=== PATIENT | female | born 1970 | race Caucasian/White ===

== ENCOUNTER → 2019-12-06 13:34 | Outpatient (CLI) | payer BC, SELFPAY ==
--- NOTE | ~2019-12-06 | MM_ITS ---
EXAMINATION: MM screening [facility] BI w hira HISTORY: Screening mammogram TECHNIQUE: Craniocaudal and mediolateral oblique 3-D tomosynthesis images were obtained and synthetic 2-D images were generated. CAD analysis was submitted and interpreted. COMPARISON: 11/20/2018, 11/11/2017, 11/07/2016 bilateral digital screening mammogram examinations 11/20/2017 diagnostic left digital mammogram and limited left breast ultrasound BREAST PARENCHYMAL COMPOSITION: There are scattered areas of fibroglandular density. FINDINGS: Scattered bilateral benign calcifications. Stable fibroglandular asymmetry since 11/07/2016. There is no evidence of suspicious mass, calcification, or architectural distortion to suggest malig xenia in either breast. There has been no suspicious interval change. IMPRESSION: 1. No mammographic evidence of malignancy. 2. Recommend routine screening mammography in one year. BI-RADS Category 2: Benign finding(s). Reviewed, dictated and finalized at location A.
== END ==
PROVIDERS: Visit Provider Obstetrics & Gynecology Gynecology
DX: Z12.31 Encounter for screening mammogram for malignant neoplasm of breast (principal)
CPT/HCPCS: 77063; 77067

== ENCOUNTER 2020-08-28 08:00 | Outpatient (RCR) | payer BC, SELFPAY ==
--- NOTE | 2020-08-02 09:42 | PTOPEVAL ---
PHYSICAL THERAPY EVALUATION AND PLAN OF CARE 08-02-20 Thank you for referring Masha Wilde to [facility], for the diagnosis of L LE lymphedema.? Daniella is scheduled to be seen for therapy? 2 x/week for 4 weeks. Please review, sign, date and return this plan of care CHAR. I agree with and certify that the following plan of care is medically necessary. Referring Physician Date Attending Provider: BRAD Stern PT Outpatient Evaluation Document 08/02/20 08:30 CJ (Rec: 08/02/20 09:42 CJ [id number]) Past Medical History Source of Past Medical History Patient Neurological History Hx Neurological Disorders No Significant History Cardiovascular History Hx Hypercholesterolemia Yes: med Respiratory History Hx Respiratory Disorders No Significant History Gastrointestinal History Hx Cholecystectomy Yes Hx Hernia Yes Genitourinary History Hx Genitourinary Disorders No Significant History Musculoskeletal History Hx Other Musculoskeletal Disorders Yes: R and L ankle sprains multiple times-- non surgical Endocrine History Hx Diabetes Yes: meds HEENT History Hx Other HEENT Disorders Yes: wear glasses Integumentary History Hx Skin Disorders No Significant History Reproductive History Hx Section Yes: x1 Other History Hx Other Medical Conditions Yes: obesity; in past year, lost about 25# Evaluation Information Problem Diagnosis LE lymphedema Onset May 08, 2020 Prior Level of Function Activity Level (Last 3 Months) 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 Activity of Daily Living Ability Independent Indoor/Home Mobility Independent Community Mobility Independent Stairs Ability Independent Functional Cognition (Planning, Shopping Independent , Taking Medications) Cooking Yes Cleaning Yes Laundry Yes Shopping Yes Driving Yes Pain Assessment Timing of Pain Assessment Timing of Pain Assessment Assessment Pain Scale Pain Scale Used Numeric (1 - 10) Self Report Pain Assessment Left Leg(s) Reported Pain Level 1 Pain Frequency Chronic,Continuous Other Pain Description pain on top of foot and ankle; bloating of foot, heavy across leg Lowest Pain Intensity 1 Greatest Pain Intensity 5 Pain Score Pain Score 1: Self Report Interventions Used Interventions Used By Clinicians Education Lower Extremity Range of Motion General Lower Extremi
--- NOTE | 2020-08-28 08:53 | PTOPEVAL ---
PHYSICAL THERAPY DISCHARGE 08-28-20 Refer to the clinical summary below for her status with today's discharge, compared to the initial eval. Thank you for referring Masha Wilde to [facility].? Please review, sign, date and return this Discharge CHAR. I agree with and certify that the following plan of care is medically necessary. Referring Physician Date Attending Provider: Odilia Foster, ANP Document 08/28/20 08:33 CJ (Rec: 08/28/20 08:53 CJ [id number]) Assessment Status Assessment Status Discharge Subjective Information Daniella reports: is doing self Query Text:As Reported By Patient/ massage; has the info for the Family knee high compression; is awaiting to hear back about the home compression pump; does not have any questions and is ready for discharge. Pain Assessment Timing of Pain Assessment Timing of Pain Assessment Assessment Self Report Self Report Pain Level 0 Pain Score Pain Score 0: Self Report Lymphedema Evaluation Skin Inspection Location Left Lower Extremity Skin Observations Absence of Leg Hair, Hyperpigmentation,Hyperplasia Palpation Findings Warm Skin Temperature Tissue Texture Firm Lymphedema Stage I Skin Inspection Comment minimal redness over anterior lower leg; visible lateral and medial malleoli; no firmness of tissue over lower leg; no tenderness reported; upper leg/thigh with normal skin color and good tissue mobility; firmness over lower abdomen, with palpation; LE Circumferential Measurement Left LE Lymphedema Side Left Metatarsal Heads (cm) 21.5 Figure 8 of Ankle (cm) 51 8 cm From Bottom of Foot (cm) 25 12 cm From Bottom of Foot (cm) 23.5 16 cm From Bottom of Foot (cm) 26 20 cm From Bottom of Foot (cm) 30.5 24 cm From Bottom of Foot (cm) 35.5 28 cm From Bottom of Foot (cm) 39.5 32 cm From Bottom of Foot (cm) 42.8 36 cm From Bottom of Foot (cm) 42.5 40 cm From Bottom of Foot (cm) 38 44 cm From Bottom of Foot (cm) 43 48 cm From Bottom of Foot (cm) 48 52 cm From Bottom of Foot (cm) 51.5 56 cm From Bottom of Foot (cm) 54 60 cm From Bottom of Foot (cm) 59.5 64 cm From Bottom of Foot (cm) 60 68 cm From Bottom of Foot (cm) 62 Total Left Lower Extremity Left LE: 753.8 cm Circumferential Measurement
--- NOTE | 2021-01-15 13:20 | PCPTNOTE ---
late note for 08/16/20 Pt was seen for a total of 60 minutes. 4 units of manual therapy for bi lateral LE lymphedema. MLD was performed to patient in a sitting position on the mat; upper and lower anterior and posterior quadrants of the trunk. Node stimulation of; supraclavicular, axilla, inguinal and intestinal. Then LE proximal, to distal and distal to proximal clearing. One leg and a time. After mld and lotion to leg, applied leg piece to left lower leg applied rock tape to top of foot to assist in lymph flow.
== END 2020-08-29 08:32 | disposition home or self-care (01) ==
LOC: ANHPT 08:00
PROVIDERS: PCP Physician Assistant Medical; Visit Provider Physician Assistant Medical
DX: I89.0 Lymphedema, not elsewhere classified (principal)
CPT/HCPCS: 29581; 97016; 97140; 97161

== ENCOUNTER → 2020-09-07 12:42 | Outpatient (CLI) | payer BC, SELFPAY ==
--- NOTE | ~2020-09-07 | US_ITS ---
EXAMINATION: US pelvic complete DATE: 09/07/2020 13:43 INDICATION: Left lower quadrant pain. Menorrhagia. Comparison:No prior studies for comparison. TECHNIQUE: Multiple transabdominal and endovaginal sonographic images of the pelvis performed. FINDINGS: The uterus measures 13.6 x 7 x 8.5 cm. There are subtle hypoechoic masses of the uterus, co nsistent with fibroids, largest at the fundus measuring 5.3 x 5.4 x 4.8 cm. On the left there is a sm aller 1.4 cm fibroid. The endometrial complex measures 1 cm. The right ovary is not visualized. Left ovary is unremarkable measuring 2.3 x 2.5 x 2.4 cm. There is no free fluid in the pelvis. There are no abnormal masses seen on either side. IMPRESSION: 1. Enlarged fibroid uterus. Largest discrete fibroid measures 5.4 x 5.3 x 4.8 cm. Reviewed, dictated and finalized at location A. IMPRESSION: 1. Enlarged fibroid uterus. Largest discrete fibroid measures 5.4 x 5.3 x 4.8 c m.
== END ==
PROVIDERS: PCP Physician Assistant Medical; Visit Provider Obstetrics & Gynecology Gynecology
DX: R10.32 Left lower quadrant pain (principal); D25.9 Leiomyoma of uterus, unspecified
CPT/HCPCS: 76856

== ENCOUNTER 2020-10-04 13:00 | Outpatient (CLI) | payer BC, SELFPAY ==
[2020-10-04 14:15] LABS: Anion Gap 10 mmol/L (8-16); Blood Urea Nitrogen 11 mg/dL (7-17); Calcium 9.9 mg/dL (8.4-10.2); Carbon Dioxide 28 mmol/L (22-30); Chloride 103 mmol/L (98-107); Estimated Glomerular Filt Rate > 60; Glucose 233 mg/dL (65-105); Potassium 3.6 mmol/L (3.4-5.0); Sodium 141 mmol/L (137-145)
== END 2020-10-04 13:01 | disposition home or self-care (01) ==
LOC: ANHSURGERY 13:03
PROVIDERS: Anesthesiology; PCP Physician Assistant Medical; Visit Provider Obstetrics & Gynecology Gynecology
DX: Z01.818 Encounter for other preprocedural examination (principal); E11.9 Type 2 diabetes mellitus without complications
CPT/HCPCS: 36415; 80048

== ENCOUNTER 2020-10-06 01:25 | Day surgery (SDC) | payer BC, SELFPAY ==
[2020-10-03 16:13] VITALS: BMI 38.1
[2020-10-06 06:15] VITALS: BP 140/89; PULSE 83; RESP 20; TEMP 36.4; O2SAT 100
[2020-10-06] MEDS: ACETAMINOPHEN 500 MG TABLET 1000 MG PO (06:28)
[2020-10-06] MEDS: LACTATED RINGERS 1,000 ML 30 ML IV CONT (06:30)
[2020-10-06 06:39] LABS: Glucose Point of Care 189 mg/dl (65-105)
--- NOTE | 2020-10-06 06:42 | WPDANESEPPF ---
Anes - Initial Pre Proc Eval Procedure: Operation Date: 10/06/20 07:30 Proposed Procedures p Hysteroscopy, Dilation and Curettage, Myomectomy - Gissell Talavera MD Date/Time: 10/06/20 06:42 Surgeon: Gissell Talavera MD Pre Op Diagnosis: irregular bleeding Patient Data Age: 50 Gender: F Height: 1.65 m Weight: 104 kg Allergies Allergy/AdvReac Type Severity Reaction Status Date / Time No Known Allergies Allergy Unknown Verified 10/06/20 06:24 Home Medications Medication Instructions Recorded Confirmed Type atorvastatin 20 mg PO DAILY 10/03/20 10/06/20 History cholecalciferol (vitamin D3) 25 mcg PO DAILY 10/03/20 10/06/20 History [Vitamin D3] mecobalamin (vitamin B12) [B12 1,000 mcg PO DAILY 10/03/20 10/06/20 History Active] metformin 500 mg PO DAILY 10/03/20 10/06/20 History bzcdvdoumzhl-qbd-vnte-FA-vit K 1 tablet PO DAILY 10/03/20 10/06/20 History [Adults Multivitamin] semaglutide [Rybelsus] 30 mg PO DAILY 10/03/20 10/06/20 History Laboratory Tests 10/06/20 06:36 POC Capillary Glucose 189 mg/dl H mg/dl (65-105) Patient hx anesthesia problems: none Family hx anesthesia problems: none PMFSH Past Medical History Medical History (Updated 10/06/20 @ 06:45 by Jeff Guzman MD) Diabetes Obesity Surgical History Surgical History (Updated 10/06/20 @ 06:46 by Jeff Guzman MD) H/O hernia repair History of section History of cholecystectomy Social History Social History Smoking packs per day: 1 Smoking cigarettes per day: 20.0 Years smoked: 10 Smoking pack-years: 10.00 Smoking status: Former smoker Tobacco type: cigarettes Smoking end date: 03/24/97 Alcohol intake: former Drinks per week: 1 Substance use: never Substance use type: does not use Living arrangements: with family Spiritual care concerns: No Anes - Eval Final PreProcedure Day of Procedure 10/06/20 06:42 Patient weight: obese Heart: regular rate and rhythm Lungs: clear to auscultation Airway: Mallampati scale class III Neurological: alert and oriented Last oral intake: >/= 8 hours ASA classification: III Emergent: no Anesthetic plan: proceed Anesthesia type and monitoring: general GIVS and standard monitoring Informed Consent: The patient's anesthetic plan and its attendant risks and benefits were discussed with the patient/family/POA. Questions were solicited and answers provided to the satisfaction of the patient/family/POA.
--- NOTE | 2020-10-06 07:16 | WPDHPUPDATE1 ---
History and Physical Update Update Date/Time: 10/06/20 07:16 History and Physical has been reviewed, including an updated exam of the patient. There are NO changes in the patient's condition. Risks, benefits, and alternatives have been discussed and questions answered. Patient agrees to proceed with procedure.
--- NOTE | 2020-10-06 07:16 | PM.HPGS ---
History of Present Illness History of Present Illness Consent: Risks, benefits, and alternatives have been discussed and questions answered. Patient agrees to proceed with procedure. Chief complaint: irregular bleeding Narrative: Masha Wilde is a 50 year old female With a new onset of irregular cycles occurring every 2 weeks. Recommend workup with hysteroscopy D&C. Ultrasound shows multiple fibroids. Risks of procedure including infection, bleeding, and perforation were reviewed. Possible pathology is also discussed. Patient's questions are answered and she agrees to proceed. Review of Systems Review of Systems: Narrative: not repeated day of surgery; patient states no changes in status PMFSH Past Medical History Medical History (Updated 10/06/20 @ 07:20 by Gissell Talavera MD) Diabetes HTN (hypertension) Hypercholesteremia Obesity Surgical History Surgical History (Updated 10/06/20 @ 07:18 by Gissell Talavera MD) H/O hernia repair History of section History of cholecystectomy S/P LEEP Social History Social History Smoking packs per day: 1 Smoking cigarettes per day: 20.0 Years smoked: 10 Smoking pack-years: 10.00 Smoking status: Former smoker Tobacco type: cigarettes Smoking end date: 03/24/97 Alcohol intake: former Drinks per week: 1 Substance use: never Substance use type: does not use Living arrangements: with family Spiritual care concerns: No Meds Home Medications and Allergies Home Medications Medication Instructions Recorded Confirmed Type atorvastatin 20 mg PO DAILY 10/03/20 10/06/20 History cholecalciferol (vitamin D3) 25 mcg PO DAILY 10/03/20 10/06/20 History [Vitamin D3] mecobalamin (vitamin B12) [B12 1,000 mcg PO DAILY 10/03/20 10/06/20 History Active] metformin 500 mg PO DAILY 10/03/20 10/06/20 History nfidwyfrlgpv-mjr-grcy-FA-vit K 1 tablet PO DAILY 10/03/20 10/06/20 History [Adults Multivitamin] semaglutide [Rybelsus] 30 mg PO DAILY 10/03/20 10/06/20 History Allergies Allergy/AdvReac Type Severity Reaction Status Date / Time No Known Allergies Allergy Unknown Verified 10/06/20 06:24 Vital Signs Vital Signs - 24 hr 10/06/20 06:15 Temperature 97.5 F L Pulse Rate 83 Respiratory Rate 20 Blood Pressure 140/89 Pulse Oximetry 100 Exam Const: General: comfortable and no acute distress : External Female Exam: normal external appearance Speculum Exam - Vagina: normal appearance of the vagina Speculum Exam - Cervix: normal appearance of the cervix Bimanual exam- vagina & uterus: enlarged (12 wk size) Bimanual Exam- Adnexa, other: normal adnexae Assessment and Plan Assessment and plan (1) Irregular menses: Code(s): N92.6 - Irregular menstruation, unspecified Status: Acute Assessment and Plan: Plan to proceed with hysteroscopy with D&C (2) Fibroids: Code(s): D21.9 - Benign neoplasm of connective and other soft tissue, unspecified Status: Acute Assessment and Plan: possible myosure ressection
--- NOTE | 2020-10-06 07:57 | P.OP_ITS ---
Procedure Note - Detailed Date of Procedure 10/06/20 Pre-op Diagnosis irregular bleeding Post-op Diagnosis same Procedure Performed Hysteroscopy with MyoSure resection Surgeon Gissell Talavera MD Anesthesia MAC and local Findings cervix is stenotic; endocervix has multiple polyp type growth; uterus sounds to8.5cm and has thickened calcified areas at the junction of the right sidewall near the cervix as well as a thickened area at the left sidewall; the remainder of the endometrium appears atrophic Description of Procedure the patient was taken to the operating placed under anesthesia in the dorsal lithotomy position. She is prepped and draped in the usual sterile fashion. The [facility] speculum was too wide to the Ortega speculum was placed, the cervix was grasped on the anterior lip with a tenaculum, and injected with 1% lidocaine. The uterus was attempted to be sounded but cervical stenosis is noted. Os Finders are used to open the internal os. The cervix was then serially dilated with Hegars and the uterus sounded to8.5cm. The diagnostic hysteroscope was placed with the above-stated findings. The MyoSure device is opened and placed under direct visualization the cervical polyp growths as well as the thickened areas in the endometrium are removed under direct visualization. All instruments were then removed and the patient awakened from anesthesia. Sponge, needle, and instruments are counted as correct per OR staff. Estimated Blood Loss 5 Drains No Packing No Pathology yes ( Endometrial and endocervical shavings) Complications No immediate complications Condition stable Disposition PACU
[2020-10-06 08:05] VITALS: BP 115/63; PULSE 69; RESP 12; O2SAT 95
[2020-10-06 08:11] LABS: Glucose Point of Care 205 mg/dl (65-105)
[2020-10-06 08:35] VITALS: BP 123/70; PULSE 58; RESP 16
[2020-10-06 08:59] VITALS: BP 119/70; PULSE 56; RESP 16
== END 2020-10-06 09:05 | disposition home or self-care (01) ==
PROVIDERS: PCP Physician Assistant Medical; Visit Provider Obstetrics & Gynecology Gynecology
PROC: 0U5B8ZZ Destruction of Endometrium, Via Natural or Artificial Opening Endoscopic (ICD-10-PCS; CPT 58563; principal; 2020-10-06 07:30)
DX: N92.6 Irregular menstruation, unspecified (principal); N84.0 Polyp of corpus uteri; E11.9 Type 2 diabetes mellitus without complications; E78.00 Pure hypercholesterolemia, unspecified; I10 Essential (primary) hypertension; Z79.84 Long term (current) use of oral hypoglycemic drugs; E66.9 Obesity, unspecified; Z68.37 Body mass index [BMI] 37.0-37.9, adult; Z87.891 Personal history of nicotine dependence
CPT/HCPCS: 58558; 82948; 88305; A9270; J2250; J2405; J2704; J3010; J7120

== ENCOUNTER → 2020-12-26 16:08 | Outpatient (CLI) | payer BC, SELFPAY ==
--- NOTE | ~2020-12-26 | MM_ITS ---
EXAMINATION: MM screening [facility] BI w hira HISTORY: Screening mammogram, family history of breast cancer in her sister. TECHNIQUE: Craniocaudal and mediolateral oblique 3-D tomosynthesis images were obtained and synthetic 2-D images were generated. CAD analysis was submitted and interpreted. COMPARISON: 12/06/2019, 11/20/2018, 11/20/2017, 11/11/2017 BREAST PARENCHYMAL COMPOSITION: There are scattered areas of fibroglandular density. FINDINGS: Again noted is stable focal asymmetry in the upper outer quadrant of the left breast. There is no evidence of suspicious mass, calcification, or architectural distortion to suggest malignancy in either breast. There has been no suspicious interval change. IMPRESSION: 1. No mammographic evidence of malignancy. 2. Recommend routine screening mammography in one year. BI-RADS Category 2: Benign finding(s). Reviewed, dictated and finalized at location A.
== END ==
PROVIDERS: Visit Provider Obstetrics & Gynecology Gynecology
DX: Z12.31 Encounter for screening mammogram for malignant neoplasm of breast (principal)
CPT/HCPCS: 77063; 77067

== ENCOUNTER 2021-09-26 10:21 | Outpatient (CLI) | payer BC, SELFPAY ==
--- NOTE | 2021-09-26 10:29 | ECG_ITS ---
Measurements Intervals [place] Rate: 84 P: 42 VA: 148 QRS: -4 QRSD: 89 T: 14 QT: 349 QTc: 415 Interpretive Statements SINUS RHYTHM DELAYED PRECORDIAL R/S TRANSITION BASELINE ARTIFACT- I, II, III, AVR, AVL, AVF BORDERLINE ECG Electronically Signed On 09-26-2021 11:02:20 CDT by Andrés Jim D.O.
[2021-09-26 11:07] LABS: Anion Gap 7 mmol/L (8-16); Blood Urea Nitrogen 13 mg/dL (7-17); Calcium 9.2 mg/dL (8.4-10.2); Carbon Dioxide 26 mmol/L (22-30); Chloride 105 mmol/L (98-107); Estimated Glomerular Filt Rate > 60; Glucose 237 mg/dL (65-110); Potassium 4.1 mmol/L (3.4-5.0); Sodium 138 mmol/L (137-145)
== END 2021-09-26 10:22 | disposition home or self-care (01) ==
LOC: ANHSURGERY 10:27
PROVIDERS: Anesthesiology; PCP Internal Medicine; Visit Provider Obstetrics & Gynecology Gynecology
DX: Z01.818 Encounter for other preprocedural examination (principal); E11.9 Type 2 diabetes mellitus without complications
CPT/HCPCS: 36415; 80048; 93005

== ENCOUNTER 2021-10-01 00:02 | Day surgery (SDC) | payer BC, SELFPAY ==
[2021-09-25 10:56] VITALS: BMI 37.9
--- NOTE | 2021-09-25 11:02 | PC.NURSE ---
Report to the Outpatient Waiting Room, entrance under the green pavilion located off [facility], at time __06:00AM on date __10-01-21__. OR Time: _07:30AM_. - You and your visitor will be asked a series of questions to screen for COVID 19 for your protection. - Only one visitor is allowed at this time. - The patient visitor is requested to leave or wait in car when not with patient. - A mask is required within the hospital. Patients may have clear liquids (water, carbonated beverages, clear teas, apple juice) until 3 hours prior to surgery with a maximum of 20 ounces. NOTHING TO DRINK AFTER 04:30AM - No food from midnight until time of surgery - Infants may have breast milk until 4 hours before surgery, formula 6 hours prior to surgery. - Children will be allowed to drink immediately following surgery. If applicable, please bring a bottle or sippy cup to assist with drinking. Juice, water, soda, and popsicles are readily available. For infants on formula, please bring formula the day of surgery. Pacifiers are allowed. Take the following medications with a SIP of water the morning of surgery: ZOLOFT Medications to discontinue per physician VITAMINS Date to take last dose Please no make-up, nail danish, hairspray, perfume, deodorant, or body powder the day of surgery. No jewelry (including any body piercings) or valuables the day of surgery, leave them at home. Please take a shower or bath the night before, or the morning of, surgery with an antibacterial soap. Wear comfortable, loose fitting clothing. - Jewelry must be removed prior to entering the operating room. Rings and piercings that are not removed may be cut off. - The hospital will not accept responsibility for valuables. - Please leave all valuables, including medications, at home the day of surgery. If you are going home after surgery, a licensed boom truck driver must drive you home. - NO public transportation without another adult. - We recommend that an adult stay with you for 24 hours following discharge. - We also recommend that you do not drive, make important decision, drink alcoholic beverages, or take any drugs that were not prescribed by your health care provider for at least 24 hours after your discharge time. Follow any additional instructions given to you from your surgeon. If you or anyone in your household have experienced Covid symptoms in the past week, please notify your surgeon or the nurse liaison at the phone number below for possible testing. Telephone instructions given to __PATIENT__and asked if any additional questions and then verbalized understanding. Patient advised to call surgeon office or pre surgery nurse liaison [phone] if any additional questions.
--- NOTE | 2021-10-01 06:32 | P.PNAN_ITS ---
Anes - Initial Pre Proc Eval Procedure: Operation Date: 10/01/21 07:30 Proposed Procedures p Hysteroscopy with Starr Endometrial Ablation - Gissell Talavera MD Date/Time: 10/01/21 06:32 Surgeon: Gissell Talavera MD Pre Op Diagnosis: Menorrhagia Patient Data Age: 51 Gender: F Height: 1.66 m Weight: 105 kg Allergies Allergy/AdvReac Type Severity Reaction Status Date / Time No Known Allergies Allergy Unknown Verified 09/25/21 10:50 Home Medications Medication Instructions Recorded Confirmed Type atorvastatin 20 mg tablet 20 mg PO DAILY 10/03/20 09/25/21 History cholecalciferol (vitamin D3) 25 25 mcg PO DAILY 10/03/20 09/25/21 History mcg (1,000 unit) tablet (Vitamin D3) mecobalamin (vitamin B12) 1,000 1,000 mcg PO DAILY 10/03/20 09/25/21 History mcg chewable tablet (B12 Active) metformin 500 mg tablet,extended 500 mg PO DAILY 10/03/20 09/25/21 History release 24 hr multivit with minerals-iron 18 1 tablet PO DAILY 10/03/20 09/25/21 History mg-folic ac 400 mcg-vit K 25 mcg tablet (Adults Multivitamin) semaglutide 3 mg tablet (Rybelsus) 30 mg PO DAILY 10/03/20 09/25/21 History estradiol 1 mg-progesterone 100 mg 1 cap PO DAILY 09/25/21 09/25/21 History capsule sertraline 25 mg tablet (Zoloft) 25 mg PO DAILY 09/25/21 09/25/21 History Patient hx anesthesia problems: none Family hx anesthesia problems: none Results Review: All pre-operative results and documents have been reviewed as part of the pre- operative evaluation. [facility] Past Medical History Medical History Diabetes HTN (hypertension) Hypercholesteremia Obesity Surgical History Surgical History H/O hernia repair History of section History of cholecystectomy S/P LEEP Social History Social History Smoking packs per day: 1 Smoking cigarettes per day: 20.0 Years smoked: 11 Smoking pack-years: 11.00 Smoking status: Former smoker Tobacco type: cigarettes Smoking end date: 03/24/97 Alcohol intake: former Drinks per week: 4 Substance use: never Substance use type: does not use Living arrangements: with family Spiritual care concerns: No Anes - Eval Final PreProcedure Day of Procedure 10/01/21 06:32 Patient weight: obese Heart: regular rate and rhythm Lungs: clear to auscultation Airway: Mallampati scale class II Neurological: alert and oriented Last oral intake: >/= 8 hours ASA classification: III Emergent: no Anesthetic plan: proceed Anesthesia type and monitoring: general GIVS and standard monitoring Results Review: All pre-operative results and documents have been reviewed as part of the pre- operative evaluation. Informed Consent: The patient's anesthetic plan and its attendant risks and benefits were discussed with the patient/family/POA. Questions were solicited and answers provided to the satisfaction of the patient/family/POA.
[2021-10-01] MEDS: LACTATED RINGERS 1,000 ML 30 ML IV CONT (06:35)
[2021-10-01] MEDS: ACETAMINOPHEN 500 MG TABLET 1000 MG PO (06:36)
[2021-10-01 06:40] LABS: Glucose Point of Care 204 mg/dl (65-105)
[2021-10-01 06:45] VITALS: BP 116/74; PULSE 80; RESP 16; TEMP 36.1; O2SAT 97
--- NOTE | 2021-10-01 07:14 | WPDHPUPDATE1 ---
History and Physical Update Update Date/Time: 10/01/21 07:14 History and Physical has been reviewed, including an updated exam of the patient. There are NO changes in the patient's condition. Risks, benefits, and alternatives have been discussed and questions answered. Patient agrees to proceed with procedure.
--- NOTE | 2021-10-01 07:14 | PM.HPGS ---
History of Present Illness History of Present Illness Consent: Risks, benefits, and alternatives have been discussed and questions answered. Patient agrees to proceed with procedure. Chief complaint: Menorrhagia Narrative: Masha Wilde is a 51 year old female with heavy cycles. Patient underwent D&C hysteroscopy September of 2020. She has tried medication at varying doses without success. She has elected to proceed with Starr endometrial ablation. Risks of infection, bleeding, perforation, and failure of device were reviewed. Success was also reviewed with the patient. Patient voices understanding and agrees to proceed. Review of Systems Constitutional: Constitutional: Reports fatigue and Reports headache(s) Psychiatric: Psychiatric: Reports anxiety PMFSH Past Medical History Medical History (Updated 10/01/21 @ 07:18 by Gissell Talavera MD) Diabetes HTN (hypertension) Hypercholesteremia Obesity Surgical History Surgical History (Updated 10/01/21 @ 07:17 by Gissell Talavera MD) H/O hernia repair Umbilical 2010 History of section History of cholecystectomy History of hysteroscopy S/P LEEP Social History Social History Smoking packs per day: 1 Smoking cigarettes per day: 20.0 Years smoked: 11 Smoking pack-years: 11.00 Smoking status: Former smoker Tobacco type: cigarettes Smoking end date: 03/24/97 Alcohol intake: former Drinks per week: 4 Substance use: never Substance use type: does not use Living arrangements: with family Spiritual care concerns: No Meds Home Medications and Allergies Home Medications Medication Instructions Recorded Confirmed Type atorvastatin 20 mg tablet 20 mg PO DAILY 10/03/20 10/01/21 History cholecalciferol (vitamin D3) 25 25 mcg PO DAILY 10/03/20 10/01/21 History mcg (1,000 unit) tablet (Vitamin D3) mecobalamin (vitamin B12) 1,000 1,000 mcg PO DAILY 10/03/20 10/01/21 History mcg chewable tablet (B12 Active) metformin 500 mg tablet,extended 500 mg PO DAILY 10/03/20 10/01/21 History release 24 hr multivit with minerals-iron 18 1 tablet PO DAILY 10/03/20 10/01/21 History mg-folic ac 400 mcg-vit K 25 mcg tablet (Adults Multivitamin) semaglutide 3 mg tablet (Rybelsus) 30 mg PO DAILY 10/03/20 10/01/21 History estradiol 1 mg-progesterone 100 mg 1 cap PO DAILY 09/25/21 10/01/21 History capsule sertraline 25 mg tablet (Zoloft) 25 mg PO DAILY 09/25/21 10/01/21 History Allergies Allergy/AdvReac Type Severity Reaction Status Date / Time No Known Allergies Allergy Unknown Verified 10/01/21 06:44 Vital Signs Vital Signs - 24 hr 10/01/21 06:45 Temperature 97.0 F L Pulse Rate 80 Respiratory Rate 16 Blood Pressure 116/74 Pulse Oximetry 97 Oxygen Delivery Room Air Exam Const: General: healthy appearing and alert Orientation/consciousness: patient oriented x3 GI: GI Palp: Yes Soft to palpation, No Tenderness to palpation present (GI) and No Palpable mass present : External Female Exam: normal external appearance Speculum Exam - Vagina: normal appearance of the vagina and normal vaginal discharge Speculum Exam - Cervix: normal appearance of the cervix Bimanual exam- vagina & uterus: uterine size normal and consistency normal Bimanual Exam- Adnexa, other: normal adnexae and No adnexal tenderness Neuro: General: patient oriented x3 Assessment and Plan Assessment and plan (1) Menorrhagia: Code(s): N92.0 - Excessive and frequent menstruation with regular cycle Status: Acute Assessment and Plan: Plan to proceed with endometrial ablation with Starr device
[2021-10-01] MEDS: KETOROLAC 30 MG/ML VIAL (*BKC) IV PUSH (07:41)
--- NOTE | 2021-10-01 07:46 | W.PM.PROC2 ---
Procedure Note - Detailed Date of Procedure 10/01/21 Pre-op Diagnosis Menorrhagia Post-op Diagnosis Same Procedure Performed Starr endometrial ablation with hysteroscopy Surgeon Gissell Talavera MD Anesthesia MAC and Local Findings Uterus sounds to 10cm and appears grossly normal Description of Procedure The patient is taken to the operating room and placed under anesthesia in the dorsal lithotomy position. She was prepped and draped in the usual sterile fashion. [place] speculum was placed in the vagina, cervix was grasped on the anterior lip with a tenaculum, and cervix is injected in each quadrant with lidocaine. The uterus is sounded to 10cm. The cervix is serially dilated to an 8 Hegar. The diagnostic hysteroscope was placed with no abnormalities noted. The hysteroscope was removed and the Starr device opened and placed. Cavity assessment passed on the 1st attempt. The device is set at 6.5cm. Treatment cycle lasted the entire 2minutes. The device is removed and the hysteroscope replaced. Good ablation effect is noted. All instruments are removed and the patient awakened from anesthesia. Sponge, needle, and instrument counts are correct per the OR staff. Estimated Blood Loss 5 Drains No Packing No Pathology None sent Complications No immediate complications Condition Stable Disposition PACU
[2021-10-01 07:55] VITALS: BP 111/61; PULSE 67; RESP 12; O2SAT 93
[2021-10-01 07:59] LABS: Glucose Point of Care 196 mg/dl (65-105)
[2021-10-01 08:25] VITALS: BP 125/72; PULSE 70; RESP 12; O2SAT 95
[2021-10-01 08:55] VITALS: BP 128/72; PULSE 68; RESP 16
== END 2021-10-01 09:15 | disposition home or self-care (01) ==
PROVIDERS: PCP Internal Medicine; Visit Provider Obstetrics & Gynecology Gynecology
PROC: 0U5B8ZZ Destruction of Endometrium, Via Natural or Artificial Opening Endoscopic (ICD-10-PCS; CPT 58563; principal; 2021-10-01 07:30)
DX: N92.0 Excessive and frequent menstruation with regular cycle (principal); I10 Essential (primary) hypertension; E78.00 Pure hypercholesterolemia, unspecified; E11.9 Type 2 diabetes mellitus without complications; E66.9 Obesity, unspecified; Z68.35 Body mass index [BMI] 35.0-35.9, adult; Z87.891 Personal history of nicotine dependence; Z79.84 Long term (current) use of oral hypoglycemic drugs
CPT/HCPCS: 58563; 82948; A9270; J1100; J1885; J2250; J2405; J2704; J3010; J7030; J7120

== ENCOUNTER → 2022-04-15 15:00 | Outpatient (CLI) | payer BC, SELFPAY ==
--- NOTE | ~2022-04-15 | MM_ITS ---
EXAMINATION: MM screening [facility] BI w hira HISTORY: Screening mammogram TECHNIQUE: Craniocaudal and mediolateral oblique 3-D tomosynthesis images were obtained and synthetic 2-D images were generated. CAD analysis was submitted and interpreted. COMPARISON: 12/26/2020, 12/06/2019, 11/20/2018 bilateral screening mammogram examinations BREAST PARENCHYMAL COMPOSITION: The breasts are heterogeneously dense, which may obscure small masses . FINDINGS: Left breast: There is suggestion of multiple left breast masses. Diagnostic left mammogram and left breast ultrasound examination are recommended. Right breast: There is no evidence of suspicious mass, calcification, or architectural distortion to suggest malignancy in the right breast. There has been no suspicious interval change on the right. IMPRESSION: 1. Left breast masses 2. Diagnostic left mammogram and left breast ultrasound examination are recommended BI-RADS Category 0: Incomplete: Needs additional imaging evaluation. Reviewed, dictated and finalized at location A. FILLER IMPRESSION: 1. Left breast masses 2. Diagnostic left mammogram and left breast ultrasound examination are recomme nded BI-RADS Category 0: Incomplete: Needs additional imaging evaluation.
== END ==
PROVIDERS: PCP Obstetrics & Gynecology Gynecology; Visit Provider Obstetrics & Gynecology Gynecology
DX: Z12.31 Encounter for screening mammogram for malignant neoplasm of breast (principal); R92.8 Other abnormal and inconclusive findings on diagnostic imaging of breast
CPT/HCPCS: 77063; 77067

== ENCOUNTER 2022-05-02 07:54 | Outpatient (CLI) | payer BC, SELFPAY ==
--- NOTE | ~2022-05-02 | MMUS_ITS ---
EXAMINATION: MM diagnostic [facility] LT w hira, US breast LT limited HISTORY: Left breast masses suggested on 04/15/2022 screening mammogram examination TECHNIQUE: Additional 3-D tomosynthesis images of the left breast were performed and synthetic 2-D im ages were generated. CAD analysis was submitted and interpreted. High resolution upper outer and lowe r-outer quadrant left breast ultrasound was performed. COMPARISON: 04/15/2022 bilateral screening mammogram FINDINGS: MAMMOGRAPHIC FINDINGS: Circumscribed approximately 1.3 cm opacity is noted in the upper outer left breast; the mammographic features suggest benign process No suspicious reproducible mass or architectural distortion is evident on these supplemental views. T here are multiple benign calcifications. No skin thickening or retraction. ULTRASOUND: At 1:00 10 cm from the nipple there were a couple of sonolucent circumscribed lesions, measuring 6.6 x 6.4 x 7.1 mm and 12 x 9.6 x 13.5 mm. There is through transmission posterior enhancement. No suspicious mass or shadowing is detected. IMPRESSION: 1. Benign findings 2. Routine annual mammographic screening is recommended BI-RADS Category 2: Benign finding(s). Reviewed, dictated and finalized at location A. UP HELPER IMPRESSION: 1. Benign findings 2. Routine annual mammographic screening is recommended BI-RADS Category 2: Benign finding(s).
== END 2022-05-02 07:55 ==
PROVIDERS: PCP Physician Assistant Medical; Visit Provider Obstetrics & Gynecology Gynecology
DX: R92.8 Other abnormal and inconclusive findings on diagnostic imaging of breast (principal)
CPT/HCPCS: 76642; 77061; 77065; G0279

== ENCOUNTER 2022-09-23 08:16 | Outpatient (CLI) | payer BC, SELFPAY ==
--- NOTE | 2022-09-23 08:34 | ECG_ITS ---
Measurements Intervals [place] Rate: 94 P: 46 MS: 136 QRS: 3 QRSD: 88 T: 13 QT: 354 QTc: 443 Interpretive Statements SINUS RHYTHM POOR R WAVE PROGRESSION, ANTERIOR LEADS BASELINE ARTIFACT- III, AVF, V3 BORDERLINE ECG COMPARED TO ECG 09/26/2021 10:46:03 NO SIGNIFICANT CHANGES Electronically Signed On 09-23-2022 10:01:04 CDT by Andrés Jim D.O.
[2022-09-23 09:24] LABS: Hemoglobin 12.5 g/dL (12.0-15.0)
[2022-09-23 09:29] LABS: Anion Gap 13 mmol/L (8-16); Blood Urea Nitrogen 13 mg/dL (7-17); Carbon Dioxide 21 mmol/L (22-30); Chloride 103 mmol/L (98-107); Estimated Glomerular Filt Rate > 60; Glucose 280 mg/dL (65-110); Potassium 3.9 mmol/L (3.4-5.0); Sodium 137 mmol/L (137-145)
== END 2022-09-23 08:17 | disposition home or self-care (01) ==
PROVIDERS: Anesthesiology; PCP Physician Assistant Medical; Visit Provider Obstetrics & Gynecology Gynecology
DX: N92.0 Excessive and frequent menstruation with regular cycle (principal); E11.9 Type 2 diabetes mellitus without complications; Z01.818 Encounter for other preprocedural examination; R94.31 Abnormal electrocardiogram [ECG] [EKG]
CPT/HCPCS: 36415; 80048; 85014; 85018; 86850; 86900; 86901; 93005

== ENCOUNTER 2022-09-30 11:33 | Inpatient (IN) | payer BC, SELFPAY ==
[2022-09-19 14:40] VITALS: BMI 40.1
--- NOTE | 2022-09-19 14:46 | PC.NURSE ---
Report to the Outpatient Waiting Room, entrance under the green pavilion located off [facility], at time 7:30 on date 09/30/22. Planned Procedure Time: 9:30. Time changes happen often and if your time is changed the preop area will call you the afternoon before. - You and your visitor will be asked to self-screen and do not enter if you have any COVID symptoms. - A mask is optional within the hospital at this time. Patients may have clear liquids (water, carbonated beverages, clear teas, apple juice) until 3 hours prior to surgery (6:30) with a maximum of 20 ounces. - No food from midnight until time of surgery Take the following medications with a SIP of water the morning of surgery: SERTRALINE DO NOT STOP ANY OF YOUR OTHER PRESCRIPTION MEDICATIONS PRIOR TO SURGERY ?EXCEPT THE FOLLOWING Medications to discontinue per physician: VITAMINS/SUPPLEMENTS Date to take last dose: 09/26/22 Please no make-up, nail maltese, hairspray, perfume, deodorant, or body powder the day of surgery. No jewelry (including any body piercings) or valuables the day of surgery, leave them at home. Please take a shower or bath the night before, or the morning of, surgery with an antibacterial soap. Wear comfortable, loose fitting clothing. - Jewelry must be removed prior to entering the operating room. Rings and piercings that are not removed may be cut off. - The hospital will not accept responsibility for valuables. - Please leave all valuables, including medications, at home the day of surgery. If you are going home after surgery, a licensed delivery truck driver heavy must drive you home. - NO public transportation without another adult if you receive anesthesia. - We recommend that an adult stay with you for 24 hours following discharge. - We also recommend that you do not drive, make important decision, drink alcoholic beverages, or take any drugs that were not prescribed by your health care provider for at least 24 hours after your discharge time. Follow any additional instructions given to you from your surgeon. If you or anyone in your household have experienced Covid symptoms in the past week, please notify your surgeon or the nurse liaison at the phone number below for possible testing. Telephone instructions given to PT - MILLA ARREOLA and asked if any additional questions and then verbalized understanding. Patient advised to call surgeon office or pre surgery nurse liaison [phone] if any additional questions.
--- NOTE | 2022-09-27 10:52 | PCCCNOTE ---
Call placed to [facility] ([phone]) and spoke with Rose. She states case is approved for 2 days 09/30- 10/02. If more days are required faxed notes to [phone].
[2022-09-30] VITALS (18 sets, daily range): BP systolic 137–164; BP diastolic 62–94; PULSE 83–109; RESP 12–18; TEMP 36.1–36.9; O2SAT 92–100
[2022-09-30] MEDS: ACETAMINOPHEN 500 MG TABLET 1000 MG PO (06:30)
[2022-09-30 06:35] LABS: Glucose Point of Care 202 mg/dl (65-105)
[2022-09-30] MEDS: LACTATED RINGERS 1,000 ML 30 ML IV CONT ×2 (06:35→09:42)
[2022-09-30] MEDS: KETOROLAC 15 MG/ML VIAL (*BKC) IV PUSH (06:41)
--- NOTE | 2022-09-30 06:49 | WPDANESEPPF ---
Anes - Initial Pre Proc Eval Procedure: Operation Date: 09/30/22 07:30 Proposed Procedures p Total Abdominal Hysterectomy with Bilateral Salpingectomy - Gissell Talavera MD Date/Time: 09/30/22 06:49 Surgeon: Gissell Talavera MD Pre Op Diagnosis: menorrhagia Patient Data Age: 52 Gender: F Height: 1.65 m Weight: 109.35 kg Allergies Allergy/AdvReac Type Severity Reaction Status Date / Time lisinopril Allergy Severe angioedema Verified 09/30/22 06:47 Home Medications Medication Instructions Recorded Confirmed Type cholecalciferol (vitamin D3) 25 25 mcg PO DAILY 10/03/20 09/20/22 History mcg (1,000 unit) tablet (Vitamin D3) mecobalamin (vitamin B12) 1,000 1,000 mcg PO DAILY 10/03/20 09/20/22 History mcg chewable tablet (B12 Active) multivit with minerals-iron 18 1 tablet PO DAILY 10/03/20 09/20/22 History mg-folic ac 400 mcg-vit K 25 mcg tablet (Adults Multivitamin) Lactobacillus rhamnosus GG 10 1 cap PO DAILY 11/09/21 09/20/22 History billion cell capsule (Culturelle) metformin 500 mg tablet,extended 1,000 mg PO BID 3 months #360 tabs 04/04/22 09/20/22 Rx release 24 hr atorvastatin 20 mg tablet See Rx Instructions .Route 05/06/22 09/20/22 Rx .COMPLEX #90 tabs glimepiride 1 mg tablet 1 mg PO BID #180 tabs 08/15/22 09/20/22 Rx sertraline 25 mg tablet See Rx Instructions .Route 08/26/22 09/20/22 Rx .COMPLEX #90 tabs Laboratory Tests 09/30/22 06:33 POC Capillary Glucose 202 H mg/dl (65-105) Patient hx anesthesia problems: none Family hx anesthesia problems: none Results Review: All pre-operative results and documents have been reviewed as part of the pre-operative evaluation. [facility] Past Medical History Medical History Cholecystectomy planned Diabetes HTN (hypertension) Hypercholesteremia Obesity Vitamin B 12 deficiency Vitamin D deficiency Surgical History Surgical History H/O hernia repair Umbilical 2011 History of section History of cholecystectomy History of endometrial ablation History of hysteroscopy S/P LEEP Family History Family History Father Diabetes mellitus Hypertension Thyroid disease Sibling Breast cancer Son Depression Anxiety Grandparent Cerebrovascular accident Grandparent Stomach cancer Diabetes mellitus Heart disease Thyroid disease Social History Social History Smoking packs per day: 1 Smoking cigarettes per day: 20.0 Years smoked: 8 Smoking pack-years: 8.00 Smoking status: Former smoker Tobacco type: cigarettes Smoking end date: 03/24/97 Alcohol intake: current Alcohol use details: VERY RARE Substance use: never Substance use type: does not use Living arrangements: with family Occupation/Education: occupation Gender identity (if verbalized by the patient): Female Sexual Orientation (if Verbalized by the Patient): Straight or Heterosexual Spiritual care concerns: No Anes - Eval Final PreProcedure Day of Procedure 09/30/22 06:49 Patient weight: morbidly obese Heart: regular rate and rhythm Lungs: clear to auscultation Airway: Mallampati scale class II Neurological: alert and oriented Last oral intake: >/= 8 hours ASA classification: III Emergent: no Anesthetic plan: proceed Anesthesia type and monitoring: general ETT and standard monitoring Results Review: All pre-operative results and documents have been reviewed as part of the pre-operative evaluation. Informed Consent: The patient's anesthetic plan and its attendant risks and benefits were discussed with the patient/family/POA. Questions were solicited and answers provided to the satisfaction of the patient/family/POA.
--- NOTE | 2022-09-30 07:18 | WPDHPUPDATE1 ---
History and Physical Update Update Date/Time: 09/30/22 07:18 History and Physical has been reviewed, including an updated exam of the patient. There are NO changes in the patient's condition. Risks, benefits, and alternatives have been discussed and questions answered. Patient agrees to proceed with procedure.
--- NOTE | 2022-09-30 07:19 | PM.IMHP ---
H&P: HPI History of Present Illness Date/Time: 09/30/22 07:19 Chief Complaint: 52-year-old with failed conservative management for menorrhagia presenting for total abdominal hysterectomy bilateral salpingectomy. The patient has a prior endometrial ablation as well as trying medication without success. The plan is to proceed with definitive therapy. Risks of infection, bleeding, injury to internal organs ( bowel, bladder, ureters, ovaries), DVT and anesthesia are reviewed. Patient voices understanding and agrees to proceed. Review of Systems Review of Systems: not repeated day of surgery; patient states no changes in status [facility] Past Medical History Medical History (Updated 09/30/22 @ 07:22 by Gissell Talavera MD) Anxiety Diabetes HTN (hypertension) Hypercholesteremia Obesity Vitamin B 12 deficiency Vitamin D deficiency Surgical History Surgical History H/O hernia repair Umbilical 2011 History of section History of cholecystectomy History of endometrial ablation History of hysteroscopy S/P LEEP Family History Family History Father Diabetes mellitus Hypertension Thyroid disease Sibling Breast cancer Son Depression Anxiety Grandparent Cerebrovascular accident Grandparent Stomach cancer Diabetes mellitus Heart disease Thyroid disease Social History Social History Smoking packs per day: 1 Smoking cigarettes per day: 20.0 Years smoked: 8 Smoking pack-years: 8.00 Smoking status: Former smoker Tobacco type: cigarettes Smoking end date: 03/24/97 Alcohol intake: current Alcohol use details: VERY RARE Substance use: never Substance use type: does not use Living arrangements: with family Occupation/Education: occupation Gender identity (if verbalized by the patient): Female Sexual Orientation (if Verbalized by the Patient): Straight or Heterosexual Spiritual care concerns: No Meds Home Medications and Allergies Home Medications Medication Instructions Recorded Confirmed Type cholecalciferol (vitamin D3) 25 25 mcg PO DAILY 10/03/20 09/30/22 History mcg (1,000 unit) tablet (Vitamin D3) mecobalamin (vitamin B12) 1,000 1,000 mcg PO DAILY 10/03/20 09/30/22 History mcg chewable tablet (B12 Active) multivit with minerals-iron 18 1 tablet PO DAILY 10/03/20 09/30/22 History mg-folic ac 400 mcg-vit K 25 mcg tablet (Adults Multivitamin) Lactobacillus rhamnosus GG 10 1 cap PO DAILY 11/09/21 09/30/22 History billion cell capsule (Culturelle) metformin 500 mg tablet,extended 1,000 mg PO BID 3 months #360 tabs 04/04/22 09/30/22 Rx release 24 hr atorvastatin 20 mg tablet See Rx Instructions .Route 05/06/22 09/30/22 Rx .COMPLEX #90 tabs glimepiride 1 mg tablet 1 mg PO BID #180 tabs 08/15/22 09/30/22 Rx sertraline 25 mg tablet See Rx Instructions .Route 08/26/22 09/30/22 Rx .COMPLEX #90 tabs Allergies Allergy/AdvReac Type Severity Reaction Status Date / Time lisinopril Allergy Severe angioedema Verified 09/30/22 06:47 Vital Signs Vital Signs - 24 hr 09/30/22 06:09 Temperature 96.9 F L Pulse Rate 83 Respiratory Rate 18 Blood Pressure 164/80 H Pulse Oximetry 97 Oxygen Delivery Room Air Exam Const: General: healthy appearing and alert Orientation/consciousness: patient oriented x3 Resp: Effort & Inspection: normal respiratory effort GI: GI Palp: Yes Soft to palpation, No Tenderness to palpation present (GI) and No Palpable mass present : External Female Exam: normal external appearance Speculum Exam - Vagina: normal appearance of the vagina and normal vaginal discharge Speculum Exam - Cervix: normal appearance of the cervix Bimanual exam- vagina & uterus: consistency normal and enlarged ( Fourteen week size) Bimanual Exam- Adnex
[2022-09-30] MEDS: ceFAZolin 2 GM/D5W 50 ML 2 GM/50 ML BAG IVPB (08:05)
[2022-09-30 10:09] LABS: Glucose Point of Care 294 mg/dl (65-105)
[2022-09-30] MEDS: fentaNYL CITRATE INJ (*CRX) 100 MCG/2 ML VIAL 25 MCG IV PUSH ×8 (10:09→10:45)
--- NOTE | 2022-09-30 10:09 | W.PM.PROC2 ---
Procedure Note - Detailed Date of Procedure 09/30/22 Pre-op Diagnosis menorrhagia Post-op Diagnosis Same Procedure Performed total abdominal hysterectomy bilateral salpingectomy Surgeon Gissell Talavera MD Anesthesia General Findings enlarged fibroid uterus; adhesions of the right tube and ovary to posterior cul-de-sac; adhesions of the omentum to the posterior cul-de-sac; adhesions of the bladder to the anterior lower uterine segment Description of Procedure The patient was taken to the operating room and placed under anesthesia in the dorsal supine position. She was prepped and draped in the usual sterile fashion. Trexi pannus retractor was placed. The Pfannenstiel skin incision was made with a scalpel and carried down to the underlying layer fascia up which was nicked in the midline. The incision was extended laterally using Haynes scissors. Bleeding vessels in the subcutaneous tissue were cauterized for hemostasis. Ochsner was used to tent the fascia which was then dissected off using sharp and blunt dissection. The rectus muscles were in the midline and the peritoneum tented and entered with Metzenbaum scissors. The incision was extended laterally with blunt traction. The bowel was packed away using moist laparotomy sponges. The Imelda is placed with the flexible center blade. The uterus was grasped on the cornu with large peans. There was a very large fundal fibroid. The round ligaments were doubly ligated with 0 Vicryl, transected, and the anterior leaf of the broad ligament incised meeting in the midline. The bladder flap was dissected off using blunt dissection with the sponge stick. Some adhesions were noted and these were dissected off using sharp dissection. The utero-ovarian ligament is isolated and a window created in the posterior leaf of the broad ligament. The pedicles were doubly clamped, transected, and suture ligated with 0 Vicryl. The left fallopian tube was able to be included in the pedicle. The right fallopian tube was not able to be included and was removed later. The right ovary and tube are adherent to the posterior cul-de-sac as it are omental adhesions. These were taken down using blunt dissection. The uterine vessels were doubly clamped, transected, and suture ligated with 0 Vicryl. The cardinal and uterosacral ligaments were serially clamped, transected, and suture ligated with 0 Vicryl. The uterosacral ligaments were tagged for future use. The vaginal cuff was entered using a scalpel anteriorly. Vaginal cuff was grasped anteriorly with a long Allis clamp. The specimen was amputated using Susan scissors and grasping the vaginal cuff as it was amputated. The vaginal cuff was then closed using 0 Vicryl in a running locked fashion with 2 sutures meeting in the midline. The angles were tied to the ipsilateral uterosacral ligaments. The left cardinal ligament is bleeding and required additional [id number] suture. The right ovary is grasped with a [place] and the mesosalpinx crossclamped with [place] clamp. The tube was excised. The pedicles tied off using 0 Vicryl in a Kenneth stitch. The ovary required an additional suture for hemostasis where adhesions had been removed. One additional [id number] suture was required the posterior cuff for hemostasis. All pedicles were then inspected and noted to be hemostatic. The anesthesia noted minimal tenting of blood in the Andre tubing. The bladder was inspected and no damage was visible. There was significant retraction of the bladder throughout the case as the cervix was pulled anterior making visualization very difficult. Hemoderm is placed in the posterior cul-de-sac due to minimal raw tissue oozing. All instruments and sponges are removed. The fascia was closed using 0 Vicryl in a running fashion. Subcutaneous tissues irrigated made hemostatic using Bovie cautery. Skin is closed using 4-0 Vicryl subcuticular fashion. Dermaflex was
--- NOTE | 2022-09-30 10:15 | SUR.PHASEI ---
1015- Notified Dr. Guzman of BG 294 at 1005 in recovery room. No new orders per MD- patient will resume home medication regimen once admitted to the floor.
[2022-09-30] MEDS: HYDROmorphone HCL INJ (*CRX) 1 MG/ML SYR 0.5 MG IV PUSH (11:17)
[2022-09-30] MEDS: DEXTROSE 5%/0.45% SOD CHL 1,000 ML 125 ML IV CONT ×2 (12:14→20:24)
[2022-09-30] MEDS: FENTANYL 600MCG/NS30MLPCA(*CRX 600 MCG/30 ML PCA.VIAL IV CONT (12:44)
[2022-09-30] MEDS: metFORMIN HCL XR 500 MG TAB.SR.24H 1000 MG PO (19:16)
[2022-09-30] MEDS: GLIMEPIRIDE 1 MG TABLET PO (19:17)
[2022-09-30] MEDS: ATORVASTATIN 20 MG TABLET PO (21:01)
[2022-10-01] VITALS (7 sets, daily range): BP systolic 120–152; BP diastolic 69–86; PULSE 94–107; RESP 16–18; TEMP 36.6–37.6; O2SAT 96–98
[2022-10-01] MEDS: IBUPROFEN 600 MG TABLET PO ×3 (03:28→20:43)
[2022-10-01] MEDS: HYDROcodone/acetaminophen (*CRX) 10-325 MG TABLET 1 TAB PO ×2 (03:28→09:32)
[2022-10-01 05:32] LABS: Basophils Percent Auto 0.3 % (0.2-1.2); Eosinophils Percent Auto 0.3 % (0-4.4); Hematocrit 29.6 % (37.0-47.0); Hemoglobin 9.4 g/dL (12.0-15.0); Immature Granulocyte Absolute 0.04 K/mm3 (0.00-0.031); Immature Granulocyte Percent A 0.5 % (0-0.5); Lymphocytes Absolute Auto 1.71 K/mm3 (0.9-3.2); Lymphocytes Percent Auto 19.6 % (18.3-44.2); Mean Corpuscular HGB Conc 31.8 g/dl (32-36); Mean Corpuscular Hemoglobin 29.3 pg (26-34); Mean Corpuscular Volume 92.2 fl (80-100); Mean Platelet Volume 9.6 fl (7.4-10.4); Monocytes Absolute Auto 0.9 K/mm3 (0.1-0.6); Monocytes Percent Auto 10.5 % (2.6-8.5); Neutrophils Percent Auto 68.8 % (45.5-73.1); Platelet Count Result 231 k/mm3 (150-375); Red Blood Count 3.21 M/mm3 (4.2-5.4); Red Cell Distribution Width 13.1 % (11.5-14.5); White Blood Count 8.7 K/mm3 (4.5-10.0)
--- NOTE | 2022-10-01 07:42 | P.PNAN_ITS ---
Anes - Prog Note Post-Op Date/Time: 10/01/22 07:42 Cardiovascular status: normal Respiratory status: normal Airway patency: baseline Mental status: baseline Post-Op hydration status: normal Vital Signs: Last Vital Signs Temp 36.6 C 10/01/22 03:30 Pulse 94 10/01/22 03:30 Resp 16 10/01/22 03:30 BP 152/72 H 10/01/22 03:30 Pulse Ox 98 10/01/22 03:30 O2 Del Method Room Air 09/30/22 17:00 O2 Flow Rate 2 09/30/22 12:20 Pain Score (VAS): 05/03 I/O: Intake & Output 09/30/22 09/30/22 10/01/22 15:59 23:59 07:59 Intake Total 200 2100 530 Output Total 90 1575 750 Balance 110 525 -220 Laboratory Tests 10/01/22 05:09 09/30/22 10/01/22 10:05 05:09 WBC 8.7 RBC 3.21 L Hgb 9.4 L D Hct 29.6 L MCV 92.2 MCH 29.3 MCHC 31.8 L RDW 13.1 Plt Count 231 MPV 9.6 Immature Gran % (Auto) 0.5 Neut % (Auto) 68.8 Lymph % (Auto) 19.6 Garfield % (Auto) 10.5 H Eos % (Auto) 0.3 Baso % (Auto) 0.3 Lymph # (Auto) 1.71 [place] # (Auto) 0.9 H Eos # (Auto) 0.0 Baso # (Auto) 0.0 Abs Immat Gran (auto) 0.04 H Absolute Neuts (auto) 6.0 Absolute Nucleated RBC 0.0 Nucleated RBC % 0.0 POC Capillary Glucose 294 H Post-procedural complaints: none Patient Feedback: Patient satisfied with anesthetic care.
--- NOTE | 2022-10-01 07:48 | PM.GYNPNOP ---
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 TUBING SPLICER- PN:Subj Post-Op Subjective Date/time seen: 10/01/22 07:48 Subjective: patient has no complaints, pain is well controlled, patient is tolerating oral intake and other (voided this am) Exam Narrative: up in chair bandage intact Const: General: comfortable RUBBER TUBING SPLICER - PN: Obj Data Vital Signs Vital Signs: Vital Signs - 24 hr 09/30/22 09:42 09/30/22 09:50 09/30/22 10:05 Temperature 97.7 F Pulse Rate 92 94 95 Respiratory Rate 16 14 14 Blood Pressure 151/83 H 152/77 H 154/80 H Pulse Oximetry 96 97 98 Oxygen Delivery Simple Face Mask Simple Face Mask Simple Face Mask Oxygen Flow Rate 8 8 8 09/30/22 10:20 09/30/22 10:25 09/30/22 10:40 Temperature 97.2 F L Pulse Rate 103 H 105 H 106 H Respiratory Rate 14 12 14 Blood Pressure 153/93 H 144/75 H 152/79 H Pulse Oximetry 97 92 95 Oxygen Delivery Room Air Nasal Cannula Nasal Cannula Oxygen Flow Rate 2 2 09/30/22 10:55 09/30/22 11:20 09/30/22 11:30 Temperature 97.4 F L Pulse Rate 106 H 105 H 107 H Respiratory Rate 13 15 14 Blood Pressure 142/62 H 139/74 137/76 Pulse Oximetry 94 95 96 Oxygen Delivery Nasal Cannula Nasal Cannula Nasal Cannula Oxygen Flow Rate 2 2 2 09/30/22 11:45 09/30/22 12:44 09/30/22 15:45 Temperature 97.5 F L 98.2 F Pulse Rate 108 H 109 H Respiratory Rate 16 14 16 Blood Pressure 144/91 H 153/94 H Pulse Oximetry 94 99 98 Oxygen Delivery Oxygen Flow Rate 09/30/22 12:20 09/30/22 17:00 09/30/22 19:40 Temperature 98.4 F Pulse Rate 102 H Respiratory Rate 16 Blood Pressure 139/73 Pulse Oximetry 100 96 Oxygen Delivery Nasal Cannula Room Air Oxygen Flow Rate 2 09/30/22 19:40 09/30/22 21:40 09/30/22 23:20 Temperature 98.5 F Pulse Rate 95 Respiratory Rate 16 16 16 Blood Pressure 146/76 H Pulse Oximetry 96 97 Oxygen Delivery Oxygen Flow Rate 09/30/22 22:20 10/01/22 00:20 10/01/22 02:25 Temperature Pulse Rate Respiratory Rate 16 16 16 Blood Pressure Pulse Oximetry Oxygen Delivery Oxygen Flow Rate 10/01/22 03:25 10/01/22 03:30 Temperature 97.9 F Pulse Rate 94 Respiratory Rate 16 16 Blood Pressure 152/72 H Pulse Oximetry 98 Oxygen Delivery Oxygen Flow Rate Intake/Output Intake/Output: Intake & Output 09/28/22 09/29/22 09/30/22 10/01/22 23:59 23:59 23:59 23:59 Intake Total 2300 530 Output Total 1665 750 Balance 635 -220 Meds/Results Medications: Active Medications Generic Name Dose Route Start Last Admin Trade Name Freq PRN Reason Stop Dose Admin Hydrocodone Bitart/Acetaminophen 1 tab 09/30/22 11:33 10/01/22 03:28 Hydrocodone/Acetaminophen (*Crx) 10-325 Mg Tablet PO 1 tab Q3H PRN Administration Pain Rated 6 or Greater Hydrocodone Bitart/Acetaminophen 1 tab 09/30/22 11:33 Hydrocodone/Acetaminophen (*Crx) 5-325 Mg Tablet PO Q3H PRN Pain Rated 5 or Less Atorvastatin Calcium 20 mg 09/30/22 21:00 09/30/22 21:01 Atorvastatin 20 Mg Tablet PO 20 mg HS HAY Administration Cyanocobalamin 1,000 mcg 10/01/22 09:00 Cyanocobalamin 1,000 Mcg Tablet PO DAILY HAY Dextrose 12.5 gm 09/30/22 10:04 Dextrose 50% 25 Gm/50 Ml Syringe IV PUSH PRN PRN Hypoglycemia Protocol Glimepiride 1 mg 09/30/22 17:00 09/30/22 19:17 Glimepiride 1 Mg Tablet PO 1 mg BID HAY Administration Glucagon 1 mg 09/30/22 10
[2022-10-01] MEDS: GLIMEPIRIDE 1 MG TABLET PO ×2 (09:33→17:02)
[2022-10-01] MEDS: MULTIVITAMINS /C LUTEIN (CENTRUM SILVER) TABLET *BKC 1 TAB PO (09:34)
[2022-10-01] MEDS: CYANOCOBALAMIN 1,000 MCG TABLET 1000 MCG PO (09:34)
[2022-10-01] MEDS: metFORMIN HCL XR 500 MG TAB.SR.24H 1000 MG PO ×2 (09:34→17:02)
[2022-10-01] MEDS: SERTRALINE HCL 25 MG TABLET PO (09:34)
[2022-10-01] MEDS: CHOLECALCIFEROL 1,000 UNITS TABLET 1000 UNITS PO (09:34)
[2022-10-01] MEDS: HYDROcodone/acetaminophen (*CRX) 5-325 MG TABLET 1 TAB PO ×2 (14:32→20:44)
[2022-10-01] MEDS: ATORVASTATIN 20 MG TABLET PO (20:45)
[2022-10-02] MEDS: IBUPROFEN 600 MG TABLET PO (06:46)
[2022-10-02] MEDS: HYDROcodone/acetaminophen (*CRX) 5-325 MG TABLET 1 TAB PO ×2 (06:46→09:46)
--- NOTE | 2022-10-02 07:20 | PM.GYNPNOP ---
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 Post-Op Subjective Date/time seen: 10/02/22 07:20 Subjective: patient reports feeling better, patient has no complaints and pain is well controlled (minimal narcotic needed) Exam Narrative: up in chair bandage intact abdomen soft, nd, nt 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 SERVICE AND SETTER - PN: Obj Data Vital Signs Vital Signs: Vital Signs - 24 hr 10/01/22 07:50 10/01/22 14:38 10/01/22 19:31 Temperature 99 F 99.6 F 98.4 F Pulse Rate 95 107 H Respiratory Rate 18 16 Blood Pressure 120/69 148/86 H Pulse Oximetry 96 96 Intake/Output Intake/Output: Intake & Output 09/29/22 09/30/22 10/01/22 10/02/22 23:59 23:59 23:59 23:59 Intake Total 2300 530 Output Total 1665 950 Balance 635 -420 Meds/Results Medications: Active Medications Generic Name Dose Route Start Last Admin Trade Name Freq PRN Reason Stop Dose Admin Hydrocodone Bitart/Acetaminophen 1 tab 09/30/22 11:33 10/01/22 09:32 Hydrocodone/Acetaminophen (*Crx) 10-325 Mg Tablet PO 1 tab Q3H PRN Administration Pain Rated 6 or Greater Hydrocodone Bitart/Acetaminophen 1 tab 09/30/22 11:33 10/02/22 06:46 Hydrocodone/Acetaminophen (*Crx) 5-325 Mg Tablet PO 1 tab Q3H PRN Administration Pain Rated 5 or Less Atorvastatin Calcium 20 mg 09/30/22 21:00 10/01/22 20:45 Atorvastatin 20 Mg Tablet PO 20 mg HS HAY Administration Cyanocobalamin 1,000 mcg 10/01/22 09:00 10/01/22 09:34 Cyanocobalamin 1,000 Mcg Tablet PO 1,000 mcg DAILY HAY Administration Dextrose 12.5 gm 09/30/22 10:04 Dextrose 50% 25 Gm/50 Ml Syringe IV PUSH PRN PRN Hypoglycemia Protocol Glimepiride 1 mg 09/30/22 17:00 10/01/22 17:02 Glimepiride 1 Mg Tablet PO 1 mg BID HAY Administration Glucagon 1 mg 09/30/22 10:04 Glucagon For Inj 1 Mg Vial IM PRN PRN Hypoglycemia Protocol Glucose 15 gm 09/30/22 10:04 Glucose Oral Gel 15 Gm Of Glucse In 37.5 Gm Tube PO PRN PRN Hypoglycemia Protocol Dextrose 1,000 mls @ 100 mls/hr 09/30/22 10:04 Dextrose 5% 1,000 Ml IVPB PRN PRN Hypoglycemia Protocol Ibuprofen 600 mg 09/30/22 11:33 10/02/22 06:46 Ibuprofen 600 Mg Tablet PO 600 mg Q6H PRN Administration Cramping Ketorolac Tromethamine 30 mg 09/30/22 11:33 Ketorolac 30 Mg/Ml Vial (*Bkc) IV PUSH 10/05/22 11:32 Q6H PRN Pain Rated 4-6 Metformin HCl 1,000 mg 09/30/22 17:00 10/01/22 17:02 Metformin Hcl Xr 500 Mg Tab.Sr.24h PO 1,000 mg BID HAY Administration Multivitamins/Minerals 1 tab 10/01/22 09:00 10/01/22 09:34 Multivitamins /C Lutein (Centrum Silver) Tablet *Bkc PO 1 tab DAILY HAY Administration Ondansetron HCl 4 mg 09/30/22 11:33 Ondansetron Inj 4 Mg/2 Ml Vial IV PUSH Q6H PRN Nausea Sertraline HCl 25 mg 10/01/22 09:00 10/01/22 09:34 Sertraline Hcl 25 Mg Tablet PO 25 mg QAM HAY Administration Simethicone 80 mg 09/30/22 11:33 Simethicone 80 Mg Tab.Chew PO Q2H PRN Gas Vitamin D 1,000 units 10/01/22 09:00 10/01/22 09:34 Cholecalciferol 1,000 Units Tablet PO 1,000 units DAILY HAY Administration Labs 10/01/22 05:09
--- NOTE | 2022-10-02 07:21 | PM.DS ---
DS: Admitting Diagnosis Discharge Date 10/02/22 Admitting Diagnosis fibroid uterus with menorrhagis DS: Discharge Diagnosis Discharge Diagnosis (1) S/P SIRI (total abdominal hysterectomy): Code(s): Z90.710 - Acquired absence of both cervix and uterus Status: Acute DS: Summary Hospital Course Hospital Course: Tolerating diet, voiding, and ambulating without difficulty. Status at Discharge Functional status at discharge: independent ambulation Overall status at discharge: patient is progressing back to baseline Time Spent with Patient Time attestation: Total time spent providing and/or coordinating discharge services: DS: Data Data Completed and Pending Completed studies during hospitalization: Pending at discharge 09/30/22 08:53 Surgical [PTH] Routine Pending studies at discharge: Pending at discharge 09/30/22 08:53 Surgical [PTH] Routine Discharge Plan Discharge Attending physician on discharge: Gissell Talavera Discharging Clinician: Gissell Talavera Anticipated Discharge Date/Time: 10/02/22 07:22 Patient Disposition: Home, Self-Care Activity: may shower, may drive after 2 weeks and pelvic rest Diet: diabetic Wound Care Instructions: keep dressing dry Patient Instructions: Antibiotic Form Stand Alone Forms: General Discharge Information Follow-up/Referrals: Gissell Talavera MD [Physician] - Discharge Medications: New hydrocodone-acetaminophen 5-325 mg tablet 1 tablet PO Q4H PRN (Reason: pain) Qty: 10 0RF ferrous sulfate [Feosol] 325 mg (65 mg iron) tablet 325 mg PO BID Qty: 60 1RF Continued Culturelle 10 billion cell capsule 1 cap PO DAILY cholecalciferol (vitamin D3) [Vitamin D3] 25 mcg (1,000 unit) Tablet 25 mcg PO DAILY Adults Multivitamin 18 mg iron-400 mcg-25 mcg Tablet 1 tablet PO DAILY mecobalamin (vitamin B12) [B12 Active] 1,000 mcg Tablet,Chewable 1,000 mcg PO DAILY metformin 500 mg tablet extended release 24 hr 1,000 mg PO BID 90 Days Qty: 360 1RF atorvastatin 20 mg tablet See Rx Instructions .ROUTE .COMPLEX Qty: 90 1RF Dose Instruction: TAKE 1 TABLET BY MOUTH DAILY Rx Instructions: TAKE 1 TABLET BY MOUTH DAILY glimepiride 1 mg tablet 1 mg PO BID Qty: 180 1RF Rx Instructions: administer with meals sertraline 25 mg tablet See Rx Instructions .ROUTE .COMPLEX Qty: 90 1RF Dose Instruction: TAKE 1 TABLET BY MOUTH DAILY Rx Instructions: TAKE 1 TABLET BY MOUTH DAILY Date of admission: 09/30/22 11:33 Primary Care Provider: Odilia Foster I. Admitting Provider: Gissell Talavera Attending physician on admission: Gissell Talavera Condition: Stable
[2022-10-02 08:00] VITALS: BP 128/66; PULSE 98; RESP 18; TEMP 37.1; O2SAT 97
[2022-10-02] MEDS: metFORMIN HCL XR 500 MG TAB.SR.24H 1000 MG PO (09:43)
[2022-10-02] MEDS: MULTIVITAMINS /C LUTEIN (CENTRUM SILVER) TABLET *BKC 1 TAB PO (09:43)
[2022-10-02] MEDS: GLIMEPIRIDE 1 MG TABLET PO (09:43)
[2022-10-02] MEDS: CHOLECALCIFEROL 1,000 UNITS TABLET 1000 UNITS PO (09:44)
[2022-10-02] MEDS: SERTRALINE HCL 25 MG TABLET PO (09:44)
[2022-10-02] MEDS: CYANOCOBALAMIN 1,000 MCG TABLET 1000 MCG PO (09:44)
== END 2022-10-02 10:27 | disposition home or self-care (01) | DRG 742 ==
LOC: ANHOB2 11:35
PROVIDERS: Admitting Provider Obstetrics & Gynecology Gynecology; PCP Physician Assistant Medical; Visit Provider Obstetrics & Gynecology Gynecology
PROC: 0UT94ZZ Resection of Uterus, Percutaneous Endoscopic Approach (ICD-10-PCS; principal; 2022-09-30 07:30)
DX: D25.9 Leiomyoma of uterus, unspecified (principal); Z68.41 Body mass index [BMI] 40.0-44.9, adult; N92.0 Excessive and frequent menstruation with regular cycle; E11.9 Type 2 diabetes mellitus without complications; I10 Essential (primary) hypertension; E66.01 Morbid (severe) obesity due to excess calories; E78.00 Pure hypercholesterolemia, unspecified; Z87.891 Personal history of nicotine dependence
CPT/HCPCS: 36415; 82948; 85025; 88307; A9270; J0330; J0690; J1100; J1170; J1885; J2250; J2405; J2704; J3010; J7120

== ENCOUNTER → 2023-04-17 15:27 | Outpatient (CLI) | payer BC, SELFPAY ==
--- NOTE | ~2023-04-17 | MM_ITS ---
EXAMINATION: MM screening clara BI w hira HISTORY: Screening mammogram, family history of breast cancer in her sister. TECHNIQUE: Craniocaudal and mediolateral oblique 3-D tomosynthesis images were obtained and synthetic 2-D images were generated. CAD analysis was submitted and interpreted. COMPARISON: 05/02/2022, 04/15/2022, 12/26/2020 BREAST PARENCHYMAL COMPOSITION: There are scattered areas of fibroglandular density. FINDINGS: Scattered benign-appearing calcifications are present. No suspicious mass, calcification, o r architectural distortion are identified in either breast to suggest malignancy. There has been no s uspicious interval change. IMPRESSION: 1. No mammographic evidence of malignancy. 2. Recommend routine screening mammography in one year. BI-RADS Category 2: Benign finding(s). Reviewed, dictated and finalized at location A. 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
== END ==
PROVIDERS: PCP Obstetrics & Gynecology Gynecology; Visit Provider Obstetrics & Gynecology Gynecology
DX: Z12.31 Encounter for screening mammogram for malignant neoplasm of breast (principal)
CPT/HCPCS: 77063; 77067

== ENCOUNTER 2024-04-19 15:49 | Outpatient (CLI) | payer BC, SELFPAY ==
--- NOTE | ~2024-04-19 | MM_ITS ---
EXAMINATION: MM screening clara BI w hira HISTORY: Screening TECHNIQUE: Craniocaudal and mediolateral oblique 3-D tomosynthesis images were obtained and synthetic 2-D images were generated. CAD analysis was submitted and interpreted. COMPARISON: Comparison to multiple prior studies sequentially, with oldest reviewed study dated 11/20. BREAST PARENCHYMAL COMPOSITION: Not dense: There are scattered areas of fibroglandular density. FINDINGS: There are developing calcifications in the upper outer quadrant of the left breast. The rig ht breast is stable without evidence for malignancy. IMPRESSION: 1. Developing left breast calcifications. 2. Magnification and mediolateral views are recommended. BI-RADS Category 0: Incomplete: Needs additional imaging evaluation. Reviewed, dictated and finalized at location A. 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
== END 2024-04-19 15:50 | disposition home or self-care (01) ==
LOC: MICIMG 15:49
PROVIDERS: PCP Physician Assistant Medical; Visit Provider Obstetrics & Gynecology Gynecology
DX: Z12.31 Encounter for screening mammogram for malignant neoplasm of breast (principal); R92.1 Mammographic calcification found on diagnostic imaging of breast
CPT/HCPCS: 77063; 77067

== ENCOUNTER 2024-05-07 08:20 | Outpatient (CLI) | payer BC, SELFPAY ==
--- NOTE | ~2024-05-07 | MMUS_ITS ---
EXAMINATION: MM diagnostic clara LT w hira, US breast LT limited HISTORY: Follow-up left breast calcifications TECHNIQUE: Additional 3-D tomosynthesis images of the left breast were performed and synthetic 2-D im ages were generated. CAD analysis was submitted and interpreted. High resolution Limited left breast ultrasound was performed. COMPARISON: Comparison to multiple prior studies sequentially, with oldest reviewed study dated 12/05. BREAST PARENCHYMAL COMPOSITION: Dense: The breasts are heterogeneously dense, which may obscure small masses FINDINGS: MAMMOGRAPHIC FINDINGS: There are regional punctate calcifications in the upper outer quadrant of the left breast. Many of th e calcifications layer on mediolateral and MLO views were consistent with benign milk of calcium. ULTRASOUND: Limited left breast ultrasound: At 1:00, 12 cm from the nipple there is a antiparallel hypoechoic 6 m m mass with low level internal echoes, posterior acoustic enhancement and no internal vascularity, li aurelio a benign cyst. IMPRESSION: 1. Benign left breast calcifications in the upper outer quadrant of the left breast. Probable benign left breast cyst located at 1:00, 12 cm from the nipple. 2. Recommend 6 month follow-up Limited left breast ultrasound BI-RADS category 3, probably benign findings. Reviewed, dictated and finalized at location B. MARKETER IMPRESSION: 1. Benign left breast calcifications in the upper outer quadrant of the left br east. Probable benign left breast cyst located at 1:00, 12 cm from the nipple. 2. Recommend 6 month follow-up Limited left breast ultrasound BI-RADS category 3, probably benign findings.
== END 2024-05-07 08:21 | disposition home or self-care (01) ==
LOC: MICIMG 08:20
PROVIDERS: PCP Physician Assistant Medical; Visit Provider Obstetrics & Gynecology Gynecology
DX: R92.8 Other abnormal and inconclusive findings on diagnostic imaging of breast (principal); R92.1 Mammographic calcification found on diagnostic imaging of breast
CPT/HCPCS: 76642; 77061; 77065; G0279

== ENCOUNTER 2024-09-07 08:03 | Outpatient (CLI) | payer BC, SELFPAY ==
--- NOTE | ~2024-09-07 | DEXA_ITS ---
Bone Density Report Name: MARLEY ARREOLA Age: 54 Sex: Female Ethnicity: White Date of : 1970 Indication: postmenopausal; screening for osteoporosis; height loss; hysterectomy; Referring Provider: BONNIE BRYANT Study: Bone densitometry was performed. Exam Date: September 07, 2024 Accession number: [id number] Bone Density: Region BMD T-score Z-score Classification AP Spine(L2, L3, L4) 1.130 0.5 1.5 Normal Femoral Neck (Left) 0.740 -1.0 0.1 Normal Total Hip (Left) 0.991 0.4 1.1 Normal Femoral Neck (Right) 0.802 -0.4 0.6 Normal Total Hip (Right) 0.980 0.3 1.0 Normal Total Hip Mean 0.985 0.4 1.1 Normal World Health Organization criteria for BMD impression classify patients as: Normal (T-score at or above -1.0), Osteopenia (T-score between -1.0 and -2.5), or Osteoporosis (T-score at or below -2.5). 10-year Fracture Risk: FRAX not reported because: All T-scores for Spine Total, Hip Total, Femoral Neck at or above -1.0 Clinical Information Provided by Patient: Has used the following medications: Vitamin D Has the following medical conditions: Hysterectomy Patient maximum height was 66 Menopause Age: 53 No regular weight bearing exercise Drinks caffeinated beverages Onset of menses at age 11 Number of children 1 Impression: The patient has normal bone mass. Discussion: BONE DENSITY IS ABOVE THE MINIMUM DESIRABLE LEVEL AT ALL SKELETAL SITES TESTED. This patient?s bone mineral density is above the minimum desirable level (T-score -1.0 or better) at all sites measured. The patient should follow a healthful lifestyle (good nutrition with adequate calcium and vitamin D, and appropriate weight-bearing exercise). Follow-Up: Consider repeating this study in 5 years or sooner if there is some new clinical indication. Reported by: LA on 09/07/2024 9:13:00 AM. Reviewed, dictated and finalized at location A.
--- OUTSIDE RECORDS SUMMARY | 2024-09-07 08:10 | XMS_ITS | Encounter Summary ---
Author Organization [facility] Address Formerly [facility] [place] [address] Care Team Providers Care Trial Court Judge Name Role Phone Rene Sykes MD Primary Care Provider [phone] Odilia Foster Primary Care Provider Encounter Details Date Type Department Care Team (Late Contact Info) Description 02/20/[address] [address] Zoltan Scott MA Social History Tobacco Use Types Packs/Day Years Used Date Smoking Tobacco: Former Cigarettes 1.5 10 988 1997 Smokeless Tobacco: Never Comments:quit 25 years ago Alcohol Use Standard Drinks/Week Comments Yes 3.3 (1 standard drink = 0.6 oz p ure alcohol) Comments No Sex and Gender Information Value Date Recorded Sex Assigned at Female 05/05/2024 1:25 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 Unable to assess 02/19/2021 12:34 PM CS T documented as of this encounter Plan of Treatment Upcoming Encounters Date Type Department Care Team (Late Contact Info) Description 04/28/2025 9:00 AM REIMBURSEMENT MANAGER [facility] [address] [place] [id number] Asya Olivier Brian, GENERAL MERCHANDISE SALESPERSON [address] [facility] [address] [place] [address] documented as of this encounter Procedures Procedure Name Priority Date/Time Associated Diagnosis Comments HEMOGLOBIN, GLYCOSYLATED Routine 11/28/2023 COMPREHENSIVE METABOLIC PANEL Routine 11/28/2023 LIPID PANEL Routine 11/28/2023 CBC (OUTSIDE LAB) Routine 04/04/2020 COMPREHENSIVE METABOLIC PANEL Routine 04/04/2020 HEMOGLOBIN, GLYCOSYLATED Routine 04/04/2020 CBC (OUTSIDE LAB) Routine 07/19/2019 COMPREHENSIVE METABOLIC PANEL Routine 07/19/2019 LIPID PANEL Routine 07/19/2019 THYROID STIM HORMONE TSH Routine 07/19/2019 documented in this encounter Results * COMPREHENSIVE METABOLIC PANEL (11/28/2023) SODIUM S/P/B 141 GLUCOSE 232 mg/dL BUN 13 CREATININE S/P/B 0.57 0.5 - 1.0 CALCIUM S/P/B 9.1 POTASSIUM S/P/B 4.0 CHLORIDE S/P/B 105 GFR ESTIMATE 108 us Default History Genericprovider LABORATORY Final Result * LIPID PANEL (11/28/2023) CHOLESTEROL 117 TRIGLYCERIDES 111 HDL 50 LDL (CALCULATED) 48 NON HDL CHOLESTEROL 67 us Default History Genericprovider LABORATORY Final Result * HEMOGLOBIN, GLYCOSYLATED (11/28/2023) HGB A1C 8.7 % us Default History Genericprovider LABORATORY Final Result * CBC (OUTSIDE LAB) (04/04/2020) Pathologist [facility] WBC 9.3 HGB 13.7 HCT 40.6 PLT 263 04/04/2020 us Doc [facility] Abstract LAB-OUTSIDE/ABSTRACTED Final Result * HEMOGLOBIN, GLYCOSYLATED (04/04/2020) Pathologist [facility] HGB A1C 7.5 % 04/04/2020 us Doc [facility] Abstract LABORATORY Final Result * (ABNORMAL) COMPREHENSIVE METABOLIC PANEL (04/04/2020) Pathologist [facility] SODIUM S/P/B 142 POTASSIUM S/P/B 3.9 CO2 25 CHLORIDE S/P/B 104 GLUCOSE 168 mg/dL CALCIUM S/P/B 9.5 BUN 18 CREATININE S/P/B 0.53 0.5 - 1.0 EGFR AFR. AMER. 128(A) <=90 EGFR NON-AFR. AMER. 111(A) <=90 ALKALINE PHOSPHATASE S/P/B 75 ALT 29 AST 14 BILIRUBIN TOTAL S/P/B 1.0 ALBUMIN S/P/B 4.4 3.5 - 5.0 TOTAL PROTEIN S/P/B 6.5 GLOBULIN 2.1 04/04/2020 us Doc [facility] Abstract LABORATORY Final Result * CBC (OUTSIDE LAB) (07/19/2019) Pathologist [facility] WBC 7.3 HGB 13.7 HCT 42.2 PLT 233 07/19/2019 us Doc [facility] Abstract LAB-OUTSIDE/ABSTRACTED Final Result * THYROID STIM HORMONE, TSH (07/19/2019) Pathologist [facility] TSH 1.23 07/19/2019 us Doc [facility] Abstract LABORATORY Final Result * (ABNORMAL) COMPREHENSIVE METABOLIC PANEL (07/19/2019) SODIUM S/P/B 141 POTASSIUM S/P/B 4.3 CO2 26 CHLORIDE S/P/B 102 GLUCOSE 270 mg/dL CALCIUM S/P/B 9.8 BUN 17 CREATININE S/P/B 0.62 0.5 - 1.0 EGFR AFR. AMER. 123(A) <=90 EGFR NON-AFR. AMER. 106(A) <=90 ALKALINE PHOSPHATASE S/P/B 85 ALT 25 AST 17 BILIRUBIN TOTAL S/P/B 1.2 ALBUMIN S/P/B 4.3 3.5 - 5.0 TOTAL PROTEIN S/P/B 6.6 GLOBULIN 2.3 07/19/2019 us Doc [facility] Abstract LABORATORY Final Result * LIPID PANEL (07/19/2019) CHOLESTEROL 129 HDL 49 TRIGLYCERIDES 161 NON HDL CHOLESTEROL 80 LDL (CALCULATED) 56 07/19/2019 us Doc [facility] Abstract LABORATORY Final Result documented in this encounter Visit Diagnoses Not on filedocumented in this encounter Additional Health Concerns Infection Onset Date Last Indicated Resolved Time COVID-19 Rule Out 09/10/2021 09/10/2021 09/10/2021 12:56 PM CDT documented as of this encounter Care Teams Trial Court Judge Relationship Specialty Start Date End Date Rene Sykes MD [address] [place] [id number] PCP - General INTERNAL MEDICINE 01/21/20 03/23/22 Odilia Foster PA [address] [place] [id number] PCP - General PHYSICIAN AERIAL HURRICANE HUNTER 03/24/22 documented as of this encounter
--- OUTSIDE RECORDS SUMMARY | 2024-09-07 08:10 | XMS_ITS | Clinical Summary ---
Author Organization [facility] Address [address] [place] [address] Care Team Providers Care Distributor Of Directories Name Role Phone Odilia Foster Primary Care Provider [phone] Allergies Active Allergy Reactions Criticality Noted Date Comments Lisinopril Swelling 01/09/2023 Medications metFORMIN ER 500 MG 24 hr tablet Take 2 tablets (1,000 mg total) by mouth 2 (two) times daily. 01/16/2020 Active atorvastatin 20 MG tablet Take 1 tablet (20 mg total) by mouth nightly at bedtime. 01/15/2020 Active Multiple Vitamins-Iron (MULTI-VITAMIN/ IRON) Tab Active Cholecalciferol (VITAMIN D3) 20 MCG (800 UNIT) Tab Active vitamin B-12 (CYANOCOBALAMIN ) 100 MCG tablet Active sertraline 25 MG tablet Take 1 tablet (25 mg total) by mouth every morning. 01/18/2021 Active probiotic Cap capsule Take 1 capsule by mouth daily with breakfast. Active potassium citrate CR (UROCIT-K) 10 MEQ (1080 MG) tablet Take 1 tablet (10 mEq total) by mouth 3 (three) times daily. 03/05/2023 Active OZEMPIC 1 mg/dose injection (PEN) Inject 1 mg into the skin once a week. 04/13/2024 Active Active Problems Problem Noted Date Diagnosed Date Kidney stone 01/09/2023 Screening for colon cancer 01/25/2020 Overview (01/25/2020): Added automatically from request for surgery [id number] Diarrhea, unspecified type 01/25/2020 Overview (01/25/2020): Added automatically from request for surgery [id number] Acute sinusitis 04/18/2012 Resolved Problems Problem Noted Date Diagnosed Date Resolved Date Routine general medical exam ination at a health care facility 04/18/2012 01/24/2020 Immunizations Immunization Administration Dates Next Due Shingrix 04/29/2020 Family History Medical History Relation Comments Heart Attack Maternal Grandfather Stroke Maternal Grandmother Anemia Mother Stroke Paternal Grandfather Diabetes Paternal Grandmother Breast Cancer Sister Relation Status Comments Maternal Grandfather Maternal Grandmother Mother Paternal Grandfather Paternal Grandmother Sister Social History Tobacco Use Types Packs/Day Years Used Date Smoking Tobacco: Former Cigarettes 1.5 10 1 988 - 1997 Smokeless Tobacco: Never Tobacco Cessation:Counseling Given: Not Answered Comments:quit 25 years ago Alcohol Use Standard Drinks/Week Comments Yes 3.3 (1 standard drink = 0.6 oz p ure alcohol) Humiliation, Afraid, Rape, and Kick questionnair e Answer Date Recorded Within the last year, have y ou been afraid of your partner or ex-partner? No 01/09/2023 Within the last year, have y ou been humiliated or emotionally abused in other ways by your partner or ex-partner? No Within the last year, have y ou been kicked, hit, slapped, or otherwise physically hurt by your partner or ex-partner? No 01/09/2023 Within the last year, have y ou been raped or forced to have any kind of sexual activity by your partner or ex-partner? No 01/09/2023 Overall Financial Resource Strain (CARDIA) Answe r Date Recorded How hard is it for you to pa y for the very basics like food, housing, medical care, and heating? Not hard at all 01/09/2023 Hunger Vital Sign Answer Date Recorded Within the past 12 months, y ou worried that your food would run out before you got the money to buy more. Never true 01/10/20 23 Within the past 12 months, t he food you bought just didn't last and you didn't have money to get more. Never true 01/09/2023 PRAPARE - Transportation Answer Date Re corded In the past 12 months, has l ack of transportation kept you from medical appointments or from getting medications? No 12/22 In the past 12 months, has l ack of transportation kept you from meetings, work, or from getting things needed for daily living? No 01/09/2023 Housing Stability Vital Sign Answer Juanpablo e Recorded In the last 12 months, was t here a time when you were not able to pay the mortgage or rent on time? No 01/09/2023 In the last 12 months, how many places have you lived? 1 01/09/2023 In the last 12 months, was t here a time when you did not have a steady place to sleep or slept in a half-way (including now)? No 01/09/2023 Comments No Sex and Gender Information Value Date Recorded Sex Assigned at Female 05/05/2024 1:25 PM ENVIRONMENTAL ASSISTANT Legal Sex Female 4:12 PM CDT Gender Identity Not on file Sexual Orientation Not on file Last Filed Vital Signs Vital Sign Reading Time Taken Comments Blood Pressure 150/96 04/29/2024 8:56 AM ENVIRONMENTAL ASSISTANT Pulse 96 04/29/2024 8:56 AM ENVIRONMENTAL ASSISTANT Temperature 36.4 C (97.5 F) 01/11/2023 8:00 AM CDT Respiratory Rate 16 01/11/2023 8:00 AM CDT Oxygen Saturation 93% 01/11/2023 8:00 AM CDT Inhaled Oxygen Concentration - - Weight 102.1 kg (225 lb) 04/29/2024 8:56 AM ENVIRONMENTAL ASSISTANT Height 165.1 cm (5' 5) 04/29/2024 8:56 AM ENVIRONMENTAL ASSISTANT Body Mass Index 37.44 04/29/2024 8:56 AM ENVIRONMENTAL ASSISTANT Plan of Treatment Upcoming Encounters Date Type Department Care Team (Late st Contact Info) Description 04/28/2025 9:00 AM ENVIRONMENTAL ASSISTANT [facility] [address] [place] [phone] Asya Olivier, JENN [address] [place] [address] [address] [place] [address] Health Maintenance Due Date Last Done Comments Cervical Cancer Screening Pap Smear (Age 30 to 64) Every 3 Years 1969 Kidney Health Evaluation 1969 Annual Physical 1972 Diabetes: Retinopathy Eye Exam 09/05/1987 Hepatitis C 09/05/1987 DTaP, Tdap and Td Vaccines (1 - Tdap) 1988 Hepatitis B Vaccines (1 of 3 - 19+ 3-dose series) 1988 Pneumococcal Vaccine: 50+ Years (1 of 2 - PCV) 1988 Cervical Cancer Screening Pap with HPV Testing (Age 30 to 64) Every 5 Years 09/05/1999 Cervical Cancer Screening with HPV 09/05/1999 Mammogram Screening 2009 Zoster Vaccines (2 of 2) 06/24/2020 04/29/2020 COVID-19 Vaccine (1 - season) 2023 Hemoglobin A1C 05/27/2024 11/28/2023, 12/23, 04/04/2020, Additional history exists Lipid Panel 11/27/2024 11/28/2023, 12/23, 07/19/2019, Additional history exists Colorectal Cancer Screening Colonoscopy (10 Years) 04/14/2030 04/14/2020 Meningococcal B Vaccine Aged Out No l onger eligible based on patient's age to complete this topic Meningococcal Vaccine Aged Out No javier anni eligible based on patient's age to complete this topic RSV Immunizations Under 20 Months Aged Out No longer eligible based on patient's age to complete this topic Medical Devices Implanted Type Area Rn Hedis Device Identifier Shelf Expiration Date Model / Serial / Lot Stent Ureteral 6fr 26cm Pigtl Crv Taper Tip Bldr Mrk - [id number] Implanted:Qty : 1 on 01/10/2023 by Yoni Greenwood MD at [facility] Stent Left: Ureter [employer] [id number] 10/07/2025 [id number] Procedures Procedure Name Priority Date/Time Associated Diagnosis Comments LIPID PANEL Routine 11/28/2023 HEMOGLOBIN, GLYCOSYLATED Routine 11/28/2023 from Last 3 Months or Most Recently Relevant to Health Maintenance Results * HEMOGLOBIN, GLYCOSYLATED (11/28/2023) HGB A1C 8.7 % us Default History Genericprovider LABORATORY Final Result * LIPID PANEL (11/28/2023) CHOLESTEROL 117 TRIGLYCERIDES 111 HDL 50 LDL (CALCULATED) 48 NON HDL CHOLESTEROL 67 us Default History Genericprovider LABORATORY Final Result from Last 3 Months or Most Recently Relevant to Health Maintenance Insurance [facility] Advance Directives * Full Code (Latest Code Status on File) Date Activated Date Inactivated Comments 01/09/2023 5:38 PM 01/11/2023 12:37 PM Care Teams Distributor Of Directories Relationship Specialty Start Date End Date Odilia Foster PA [address] [place] [id number] PCP - General PHYSICIAN CLINIC LPN 03/24/22
--- OUTSIDE RECORDS SUMMARY | 2024-09-07 08:10 | XMS_ITS | Clinical Summary ---
Author Organization [facility] Address [address] [place] [address] Care Team Providers Care Production Superintendent Hydro Name Role Phone Unavailable Primary Care Provider Unavailabl e Source Comments [facility],non-owned Affiliates and Associated Physician Practices is amultiple site organization consisting of ambulatory clinics and hospital sitesin [place], [place], [place] and [place]. This disclosure is being madepursuant to the Care Everywhere program and may not contain all information available regarding this patient. Last updated 17.[facility] [employer] Social History Tobacco Use Types Packs/Day Years Used Date Smoking Tobacco: Never Assessed Comments Unknown Sex and Gender Information Value Date Recorded Sex Assigned at Not on file Legal Sex Female 10:45 AM CDT Gender Identity Not on file Sexual Orientation Not on file Plan of Treatment Health Maintenance Due Date Last Done Comments COLOGUARD (AGES 45-75) - COL ON CA SCREENING 1969 COLON MONITORING 1969 COLONOSCOPY - COLON CA SCREENING 1969 CT COLONOGRAPHY - COLON CA SCREENING 1969 Colorectal Cancer Screening 1969 FIT - COLON CA SCREENING 1969 FLEX SIG - COLON CA SCREENING 1969 MAMMOGRAM 1969 PAP SMEAR 1969 HIV SCREENING 1984 HEPATITIS C SCREENING 08/31/1987 DTAP/TDAP/TD VACCINES (1 - Tdap) 1988 HEPATITIS B VACCINE (1 of 3 - 19+ 3-dose series) 1988 PNEUMOCOCCAL VACCINE 50+ (1 of 1 - PCV) 09/05/2019 ZOSTER VACCINE (1 of 2) 09/05/2019 LIPID TESTING 07/24/2022 07/24/2017 COVID-19 VACCINE (1 - 2023-2 5 season) 2023 DEPRESSION SCREENING 03/24/2024 INFLUENZA VACCINE (Season Ended) 2024 HIB VACCINE Aged Out No longer eligi ble based on patient's age to complete this topic HPV VACCINE Aged Out No longer eligi ble based on patient's age to complete this topic MENINGOCOCCAL (Group B) VACC INE SHARED DECISION-MAKING Aged Out No longer eligibl e based on patient's age to complete this topic MENINGOCOCCAL GROUPS A/C/Y/W VACCINE Aged Out No longer eligible b ased on patient's age to complete this topic Insurance [facility]
--- OUTSIDE RECORDS SUMMARY | 2024-09-07 08:10 | XMS_ITS | Encounter Summary ---
Author Organization [facility] Address [facility] [place] [address] Care Team Providers Care Gyroscope Repairer Name Role Phone Rene Sykes MD Primary Care Provider [phone] Odilia Foster Primary Care Provider [phone] Encounter Details Date Type Department Care Team (Late st Contact Info) Description 04/05/2020 Prep for Procedure [facility] [address] [place], [place] [phone] Wai Munoz MD [address] [place] [address] Social History Tobacco Use Types Packs/Day Years Used Date Smoking Tobacco: Former Cigarettes 1.5 10 1 988 - 1998 Smokeless Tobacco: Never Comments:quit 25 years ago Alcohol Use Standard Drinks/Week Comments Not Currently 0 (1 standard drink = 0.6 oz pur e alcohol) rarely Comments No Sex and Gender Information Value Date Recorded Sex Assigned at Female 05/05/2024 1:25 PM GRAPE CUTTER Legal Sex Female 4:12 PM CDT Gender Identity Not on file Sexual Orientation Not on file documented as of this encounter Plan of Treatment Upcoming Encounters Date Type Department Care Team (Late st Contact Info) Description 04/28/2025 9:00 AM GRAPE CUTTER Office Visit [facility] [place] [facility] [address] [place] [phone] Asya Olivier FNP [address] [place] [address] documented as of this encounter Results * PRE-SURGICAL/PRE-PROCEDURE CORONAVIRUS (COVID 19) (04/11/2020 7:48 AM GRAPE CUTTER) CORONAVIRUS SARS COV 2 PCR (RESP) NOT DETECTED NOT DETECTED 04/12/2020 2:16 PM GRAPE CUTTER [employer] [facility] Comment: A Not Detected (negative) test result for this test means that SARS- CoV-2 RNA was not present in the specimen above the limit of detection. A negative result does not rule out the possibility of COVID-19 and should not be used as the sole basis for treatment or patient management decisions. If COVID-19 is still suspected, based on exposure history together with other clinical findings, re-testing should be considered in consultation with public health authorities. Laboratory test results should always be considered in the context of clinical observations and epidemiological data in making a final diagnosis and patient management decisions. Please review the Fact Sheets and FDA authorized labeling available for health care providers and patients using the following websites: [email or web address]/fact-[email or web address]/ fact-sheet2 This test has been authorized by the FDA under an Emergency Use Authorization (EUA) for use by authorized laboratories. Due to the current public health emergency, [facility] is receiving a high volume of samples from a wide variety of swabs and media for COVID-19 testing. In order to serve patients during this public health crisis, samples from appropriate clinical sources are being tested. Negative test results derived from specimens received in non-commercially manufactured viral collection and transport media, or in media and sample collection kits not yet authorized by FDA for COVID-19 testing should be cautiously evaluated and the patient potentially subjected to extra precautions such as additional clinical monitoring, including collection of an additional specimen. Methodology: Nucleic Acid Amplification Test (NAAT) includes RT-PCR or TMA Additional information about COVID-19 can be found at the [facility] website: [email or web address]. Test performed at [facility] [address] [place] [address] Director: GAYLA CLAROS DO,MPH FIRST TEST UNKNOWN 04/11/2020 7:46 AM GRAPE CUTTER [facility] EMPLOYED IN HEALTHCARE NO 04/11/2020 7:46 AM GRAPE CUTTER [facility] SYMPTOMATIC DEFINED BY CDC NO 04/11/2020 7:46 AM GRAPE CUTTER [facility] DATE OF SYMPTOM ONSET UNKNOWN 04/11/2020 8:07 AM GRAPE CUTTER [facility] HOSPITALIZATION STATUS NO 04/11/2020 7:46 AM GRAPE CUTTER [facility] PATIENT IN ICU NO 04/11/2020 7:46 AM GRAPE CUTTER [facility] RESIDENT OF [facility] C[facility] NO 04/11/2020 7:46 AM GRAPE CUTTER [facility] UNKNOWN 04/11/2020 7:46 AM GRAPE CUTTER [facility] PATIENT'S RACE WHITE OR 04/11/2020 7:46 AM GRAPE CUTTER [facility] ETHNICITY NONHISPANIC 04/11/2020 7:46 AM GRAPE CUTTER [facility] SOURCE (QST) NASOPHARYNGEAL SWAB 04/11/2020 7:46 AM GRAPE CUTTER [facility] NASOPHARYNGEAL SWAB / Unknown 04/11/2020 7:48 AM GRAPE CUTTER us Wai Munoz MD MICROBIOLOGY - GENERAL ORDERABLE S Final Result [facility] [address] [place] [address], [place] [phone] [facility] [address] [place] [address], [place]R documented in this encounter Visit Diagnoses Diagnosis Preop testing- Primary Preoperative examination, unspecified documented in this encounter Additional Health Concerns Infection Onset Date Last Indicated Resolved Time COVID-19 Rule Out 04/11/2020 04/11/2020 04/12/2020 2:16 PM GRAPE CUTTER COVID-19 Rule Out 09/10/2021 09/10/2021 09/10/2021 12:56 PM CDT documented as of this encounter Care Teams Gyroscope Repairer Relationship Specialty Start Date End Date Rene Sykes MD [address] [place] [address] PCP - General INTERNAL MEDICINE 01/21/20 03/23/22 Odilia Foster PA [address] [place] [address] PCP - General PHYSICIAN FOOD SCIENCE PROFESSOR 03/24/22 documented as of this encounter
== END 2024-09-07 08:04 | disposition home or self-care (01) ==
PROVIDERS: PCP Physician Assistant Medical; Visit Provider Obstetrics & Gynecology Gynecology
DX: Z78.0 Asymptomatic menopausal state (principal)
CPT/HCPCS: 77080

== ENCOUNTER 2024-11-04 08:25 | Outpatient (CLI) | payer BC, SELFPAY ==
--- NOTE | ~2024-11-04 | US_ITS ---
US breast LT limited 11/04/2024 08:47 Indication: Follow-up left breast mass seen on ultrasound Procedure: High-resolution Limited ultrasound of the left breast Comparison: 05/07/2024 Findings: There is an oval anechoic 4 mm cyst at 1:00, 12 cm from the nipple without internal vascula rity. Subtle posterior acoustic enhancement no suspicious masses to suggest malignancy. Impression: 1: No sonographic evidence for malignancy. Stable benign cyst 1:00, 12 cm from the nipple measuring 4 mm. Routine yearly screening mammogram and regular clinical breast examination are recommended. BI-RADS CATEGORY 2 - BENIGN FINDINGS Reviewed, dictated and finalized at location A. Impression: 1: No sonographic evidence for malignancy. Stable benign cyst 1:00, 12 cm from the nipple measuring 4 mm. Routine yearly screening mammogram and regular clinical breast examination are recommended. BI-RADS CATEGORY 2 - BENIGN FINDINGS
== END 2024-11-04 08:26 | disposition home or self-care (01) ==
PROVIDERS: PCP Physician Assistant Medical; Visit Provider Obstetrics & Gynecology Gynecology
DX: N60.02 Solitary cyst of left breast (principal)
CPT/HCPCS: 76642